=== PATIENT | female | born 1950 | race Two or more races ===

== ENCOUNTER 2019-02-22 10:17 | Inpatient (IN) | payer OTHER ==
--- NOTE | 2019-02-22 10:55 | PDOC ---
History of Present Illness - General Chief Complaint: Pain Stated Complaint: ABDOMINAL PAIN Time Seen by Provider: 02/22/19 10:55 Past History - Past Medical History Allergies/Adverse Reactions: Allergies Allergy/AdvReac Type Severity Reaction Status Date / Time Penicillins Allergy Verified 02/22/19 10:28 COPD: Yes Other medical history: glaucoma - Suicide/Smoking/Psychosocial Hx Smoking History: Never smoked *Physical Exam - Vital Signs Last Vital Signs Temp Pulse Resp BP Pulse Ox 97.5 F L 86 18 112/83 99 02/22/19 10:24 02/22/19 10:24 02/22/19 10:24 02/22/19 10:24 02/22/19 10:24
[2019-02-22] MEDS ORDERED: SODIUM CHLORIDE 1,000 ML IV STA ×2 (11:47→15:31)
--- NOTE | 2019-02-22 12:36 | PDOC ---
History of Present Illness - General Chief Complaint: Pain Stated Complaint: ABDOMINAL PAIN Time Seen by Provider: 02/22/19 10:55 History Source: Patient, Spouse () Exam Limitations: No Limitations - History of Present Illness Initial Comments: 02/22/19 12:21 68 y/o female presents to the ED with c/o decreased solid intake x 3-4 weeks along with approx 30 lb+ weight loss. Pt states about 5 weeks ago fell while walking the dog after tripping on the sidewalk. Pt states landed on her back, went to urgent care, had xrays, and was told she likely had "bruised ribs" Pt denies medical hx but has not seen a doctor in approx 8 years. Pt states no fever, MORENO, cp, SOB, abd distention, urinary complaints, or edema. Pt denies smoking and drinks alcohol occasionally. Pt also now c/o generalized weakness and intermittent dizziness w/ standing. Timing/Duration: getting worse Severity: moderate Associated Symptoms: reports: loss of appetite, weakness Past History - Travel Traveled outside of the country in the last 30 days: No Close contact w/someone who was outside of country & ill: No - Past Medical History Allergies/Adverse Reactions: Allergies Allergy/AdvReac Type Severity Reaction Status Date / Time thelma Allergy Verified 02/22/19 21:33 lemon Allergy Verified 02/22/19 21:32 [email or web address] Allergy Verified 02/22/19 21:33 Penicillins Allergy Verified 02/22/19 10:28 Home Medications: Ambulatory Orders Aspirin 81 mg PO DAILY 02/22/19 Bimatoprost [Lumigan] 1 drop OU DAILY 02/22/19 Timolol 0.5% [Timoptic 0.5%] 1 drop OU DAILY 02/22/19 Other medical history: glaucoma- left eye blindness - Suicide/Smoking/Psychosocial Hx Smoking History: Never smoked Patient Lives Alone: No Lives with/in: spouse/SO Review of Systems - Review of Systems Able to Perform ROS?: No Is the patient limited Welsh proficient: No Constitutional: Yes: Loss of Appetite, Malaise, Weakness, Unintentional Wgt. Loss, Unexplained wgt Loss HEENTM: No: Symptoms Reported Respiratory: No: Symptoms reported Cardiac (ROS): Yes: Lightheadedness ABD/GI: Yes: Poor Appetite Neurological: Yes: Weakness, Dizziness Endocrine: No: Symptoms Reported Hematologic/Lymphatic: No: Symptoms Reported *Physical Exam - Vital Signs Last Vital Signs Temp Pulse Resp BP Pulse Ox 97.5 F L 86 18 112/83 99 02/22/19 10:24 02/22/19 10:24 02/22/19 10:24 02/22/19 10:24 02/22/19 10:24 - Physical Exam General Appearance: Yes: Thin. No: Apparent Distress, Disheveled HEENT: positive: TMs Normal. negative: Pale Conjunctivae Neck: positive: Supple Respiratory/Chest: positive: Lungs Clear, Normal Breath Sounds. negative: Respiratory Distress, Accessory Muscle Use Cardiovascular: positive: Regular Rhythm, Regular Rate. negative: Murmur Gastrointestinal/Abdominal: positive: Normal Bowel Sounds, Soft, Hepatomegaly. negative: Tenderness Musculoskeletal: negative: CVA Tenderness Extremity: positive: Normal Capillary Refill, Normal Inspection, Normal Range of Motion Integumentary: positive: Normal Color, Dry, Warm Neurologic: positive: Motor Strength 5/5 (ambulatory) Heart Score/ECG Review - ECG Intrepretation Rhythm: Regular Rhythm (rate 86, noted q waves in lead I and v1) ED Treatment Course - LABORATORY CBC & Chemistry Diagram: 02/23/19 05:55 02/23/19 05:55 - RADIOLOGY Radiology Studies Ordered: Category Date Time Status ABDOMEN & PELVIS CT WITH CONTR [CT] Stat CT Scan 02/22/19 12:16 Ordered CHEST X-RAY PORTABLE* [RAD] Stat Radiology 02/22/19 11:47 Ordered Medical Decision Making - Medical Decision Making 02/22/19 12:33 CC: wt loss, decreased appetite, and now weak/dizzy w/ standing EXAM: thin/cachetic, + hepatomegaly Plan: labs, urine, cxr, ekg, ivf, abd/pel ct w/ iv contrast 02/22/19 15:0 CXR - for acute findings 02/22/19 15:43 Laboratory Tests 02/22/19 02/22/19 13:51 14:00 WBC 7.4 Hgb 7.8 L Hct 24.6 L Sodium 131 L Potassium 4.4 Chloride 92 L Carbon Dioxide 29 Anion Gap 10 BUN 23 H Creatinine 0.8 Creat Clearance w eGFR 70.91 Random Glucose 111 H Calcium 10.2 H Magnesium 2.1 Total Bilirubin 0.7 AST 82 H ALT 41 Alkaline Phosphatase 145 H Creatine Kinase 37 Troponin I < 0.02 Total Protein 6.6 Albumin 3.4 Lipase 185 Pt ordered for 2nd liter of fluid. Pt refused rectal guaic testing. Discussed low h/h and benefits of tranfusion secondary to s/s dizziness and weakness. He states will think about tranfusion and discuss with pt. Urine sent 02/22/19 17:18 CTAP reviewed by me and concerning for liver malignancy and ? lung malignancy. Will await final reading from radiologist. Pt understands the need for admission and has not agreed on tx or stool testing. Type and screen and coags will be ordered. Microblog to be sent to hospitalist *DC/Admit/Observation/Transfer Diagnosis at time of Disposition: Symptomatic anemia, Weight loss, non-intentional, Liver malignancy, Hyponatremia - Discharge Dispostion Decision to Admit order: Yes - Referrals - Patient Instructions - Post Discharge Activity
[2019-02-22 14:43] LABS: BASO % 0.2 % (0-2.0); HEMATOCRIT 24.6 % (32.4-45.2); HEMOGLOBIN 7.8 GM/dL (10.7-15.3); LYMPH % 11.1 % (8-40); MCH 22.8 pg (25.7-33.7); MCHC 31.6 g/dl (32.0-36.0); MEAN CELL VOLUME 72.3 fl (80-96); MEAN PLT VOLUME 8.2 fl (7.5-11.1); MONO % 7.1 % (3.8-10.2); NEUT % 81.6 % (42.8-82.8); PLATELET COUNT 271 K/MM3 (134-434); RBC 3.41 M/mm3 (3.60-5.2); RDW 16.1 % (11.6-15.6); WHITE BLOOD COUNT 7.4 K/mm3 (4.0-10.0)
[2019-02-22 14:52] LABS: ALBUMIN 3.4 g/dl (3.4-5.0); ALK PHOS 145 U/L (45-117); ANION GAP 10 MMOL/L (8-16); BILIRUBIN,TOTAL 0.7 mg/dL (0.2-1); BLOOD UREA NITROGEN 23 mg/dL (7-18); CALCIUM 10.2 mg/dL (8.5-10.1); CHLORIDE 92 mmol/L (98-107); CO2 29 mmol/L (21-32); CREATININE 0.8 mg/dL (0.55-1.3); GLUCOSE,RANDOM 111 mg/dL (74-106); LIPASE 185 U/L (73-393); MAGNESIUM 2.1 mg/dL (1.8-2.4); POTASSIUM 4.4 mmol/L (3.5-5.1); SGOT/AST 82 U/L (15-37); SGPT/ALT 41 U/L (13-61); SODIUM 131 mmol/L (136-145); TOT PROT 6.6 g/dl (6.4-8.2)
[2019-02-22 18:21] LABS: EPI CELLS 2.1 /HPF (0-5/HPF); URINE APPEARANCE CLOUDY; URINE BACTERIA 1.9 /hpf (NEGATIVE); URINE BILIRUBIN NEGATIVE (NEGATIVE); URINE CASTS 22 /hpf (0-8); URINE COLOR YELLOW; URINE GLUCOSE (UA) NEGATIVE (NEGATIVE); URINE KETONE TRACE (NEGATIVE); URINE LEUK ESTERASE TRACE (NEGATIVE); URINE NITRITE NEGATIVE (NEGATIVE); URINE PROTEIN 1+ (NEGATIVE); URINE RBC 3 /hpf (0-4); URINE WBC 4 /hpf (0-5)
--- NOTE | 2019-02-22 21:10 | HP ---
CHIEF COMPLAINT: Abdominal pain PCP: None HISTORY OF PRESENT ILLNESS: Pt is a pleasant 68 y/o lady with a significant past medical histroy of glaucoma who presented to [facility] along with her due to abdominal pain and poor oral intake. Pt endorses that approximately 5 weeks ago, she endured a mechanical fall while walking her dog. Pt subsequently went to [facility]gent care where she underwent an xray where she was told she had " bruised ribs". Pt states that since this injury, she has not felt herself. Pt has had a decreased appetite during this time, not being able to "keep food down". Upon interviewing pt, she endorses she has lost weight but cannot recall how much. Previous ED records indicate that she has lost around 30 lbs according to her spouse who was not at bedside at time of my interview. Pt states she has not seen a primary care physician in many years and has not underwent any screening exams such as colonoscopy or breast mammography. Furthermore, pt denies chest pain, LOC, bloody stools, or sick contacts, PMH- Glaucoma Social Hx- Former Smoker (quit 40 years ago, smoked about 1 pack, drinks 1 alcoholic beverage per day, retired from [employer]) FH- Father HTN, Mother M.I Allergies- Marycarmen, Lemon tanacross, Penicillin ER course was notable for: (1) NA--> 131 (2) CTAP--> Innumerable METs to liver. Mets in lower lung harris, spine. (3) HOME MEDICATIONS: Home Medications Medication Instructions Recorded Aspirin 81 mg PO DAILY 02/22/19 Bimatoprost [Lumigan] 1 drop OU DAILY 02/22/19 Timolol 0.5% [Timoptic 0.5%] 1 drop OU DAILY 02/22/19 REVIEW OF SYSTEMS CONSTITUTIONAL: PRESENT chills, generalized weakness, malaise, loss of appetite, weight change HEENT: Absent: rhinorrhea, nasal congestion, throat pain, throat swelling, difficulty swallowing, mouth swelling, ear pain, eye pain, visual changes CARDIOVASCULAR: Absent: chest pain, syncope, palpitations, irregular heart rate, lightheadedness , peripheral edema RESPIRATORY: PRESENT shortness of breath, dyspnea with exertion GASTROINTESTINAL: Absent: abdominal pain, abdominal distension, nausea, vomiting, diarrhea, constipation, melena, hematochezia GENITOURINARY: Absent: dysuria, frequency, urgency, hesitancy, hematuria, flank pain, genital pain MUSCULOSKELETAL: Absent: myalgia, arthralgia, joint swelling, back pain, neck pain SKIN: Absent: rash, itching, pallor HEMATOLOGIC/IMMUNOLOGIC: Absent: easy bleeding, easy bruising, lymphadenopathy, frequent infections ENDOCRINE: Absent: unexplained weight gain, unexplained weight loss, heat intolerance, cold intolerance NEUROLOGIC: Absent: headache, focal weakness or paresthesias, dizziness, unsteady gait, seizure, mental status changes, bladder or bowel incontinence PSYCHIATRIC: Absent: anxiety, depression, suicidal or homicidal ideation, hallucinations. PHYSICAL EXAMINATION Vital Signs - 24 hr 02/22/19 02/22/19 02/22/19 10:24 15:30 19:04 Temperature 97.5 F L Pulse Rate 86 Pulse Rate [ 70 74 Radial] Respiratory 18 18 18 Rate Blood Pressure 112/83 Blood Pressure 128/68 135/76 [Right Arm] O2 Sat by Pulse 99 99 98 Oximetry (%) GENERAL: NAD AAOx3 HEAD: AT/NC EYES: Corneal clouding left eye no vision. EARS, NOSE, THROAT: MMM NECK: Supple LUNGS: CTAB Good inspiratory effort HEART: RRR nl S1S2 ABDOMEN: Soft NDNT, No HSM on my exam. MUSCULOSKELETAL: FROM LOWER EXTREMITIES: No CCE NEUROLOGICAL: Cranial nerves II-XII intact. Normal speech. PSYCHIATRIC: Cooperative. Good eye contact. Appropriate mood and affect. SKIN: No rashes or lesions appreciated RECTAL: No external hemorrhoids appreciated. No obvious blood around anus. No anal fissure. Stool in rectal vault. Stool Guiac collected by myself. Laboratory Results - last 24 hr 02/22/19 02/22/19 02/22/19 13:51 14:00 14:00 WBC 7.4 RBC 3.41 L Hgb 7.8 L Hct 24.6 L MCV 72.3 L MCH 22.8 L MCHC 31.6 L RDW 16.1 H Plt Count 271 MPV 8.2 Absolute Neuts (auto) 6.0 Neutrophils % 81.6 Lymphocytes % 11.1 Monocytes % 7.1 Eosinophils % 0.0 Basophils % 0.2 Nucleated RBC % 0 Sodium 131 L Potassium 4.4 Chloride 92 L Carbon Dioxide 29 Anion Gap 10 BUN 23 H Creatinine 0.8 Creat Clearance w eGFR 70.91 Random Glucose 111 H Calcium 10.2 H Magnesium 2.1 Total Bilirubin 0.7 AST 82 H ALT 41 Alkaline Phosphatase 145 H Creatine Kinase 37 Troponin I < 0.02 Total Protein 6.6 Albumin 3.4 Lipase 185 Urine Color Urine Appearance Urine pH Ur Specific Redbird Urine Protein Urine Glucose (UA) Urine Ketones Urine Blood Urine Nitrite Urine Bilirubin Urine Urobilinogen Ur Leukocyte Esterase Urine WBC (Auto) Urine RBC (Auto) Urine Casts (Auto) U Pathogenic Cast Auto U Epithel Cells (Auto) Urine Bacteria (Auto) Stool Occult Blood Acetone, Qual Negative L 02/22/19 02/22/19 15:55 20:21 WBC RBC Hgb Hct MCV MCH MCHC RDW Plt Count MPV Absolute Neuts (auto) Neutrophils % Lymphocytes % Monocytes % Eosinophils % Basophils % Nucleated RBC % Sodium Potassium Chloride Carbon Dioxide Anion Gap BUN Creatinine Creat Clearance w eGFR Random Glucose Calcium Magnesium Total Bilirubin AST ALT Alkaline Phosphatase Creatine Kinase Troponin I Total Protein Albumin Lipase Urine Color Yellow Urine Appearance Cloudy Urine pH 5.0 Ur Specific Redbird 1.032 Urine Protein 1+ H Urine Glucose (UA) Negative Urine Ketones Trace H Urine Blood Negative Urine Nitrite Negative Urine Bilirubin Negative Urine Urobilinogen 1.0 Ur Leukocyte Esterase Trace Urine WBC (Auto) 4 Urine RBC (Auto) 3 Urine Casts (Auto) 22 U Pathogenic Cast Auto yes U Epithel Cells (Auto) 2.1 Urine Bacteria (Auto) 1.9 Stool Occult Blood Positive Acetone, Qual ASSESSMENT/PLAN: Pt is a pleasant 68 y/o lady with a significant past medical histroy of glaucoma who presented to [facility] along with her due to abdominal pain and poor oral intake. Pt endorses that approximately 5 weeks ago, she endured a mechanical fall while walking her dog. #Failure to Thrive 2/2 Malignancy. -Could potentially be primarily from Breast or GI source as both known to spread to bone. However, CTAP negative for any GI lesions. -CTAP--> Innumerable mets number to liver. Mets in lower lung harris. Mets to Spine -Reported 30 lb weight loss in past few weeks. -Onc Consult -GI Consult -Dietary Consult -Palliative Consult # Anemia 2/2 possible GI Source -H/H 7.8/24.6 -Stool occult + -GI Consult -Never had colonoscopy. Will need. -Repat H/H in am. -Iron Studies--> Ferritin, TIBC, Transferin -Hold ASA in light of possible G.I bleed # Hyponatremia 2/2 possible SIADH or Poor P.O intake - Na in ED---> 131 -Recieved 2L NS bolus so Urine studies may not be optimal -Will order Urine Sodium, Urine Osm, Serum Osm to help ascertain whether etiology is Hypovolemic hyponatremia, euvolemic hyponatremia, or hypervolemic hyponatremia. -TSH #Glaucoma -Resume home meds # FEN -No Fluids. Encourage PO intake. Orthostatics: Lying down---> 134/53 HR 81. Upright--> 118/51 HR 83 Monitor Electrolytes Regular Diet # DVT ppx SCDs GI ppx: Protonix 40 Daily Dispo: Med-Surg Visit type - Emergency Visit Emergency Visit: Yes ED Registration Date: 02/22/19 Care time: The patient presented to the Emergency Department on the above date and was hospitalized for further evaluation of their emergent condition. - New Patient This patient is new to me today: Yes Date on this admission: 02/22/19 - Critical Care Critical Care patient: No
[2019-02-22] MEDS ORDERED: PATIENT'S OWN MEDICATION (NON-FORMULARY) (Bimatoprost [Lumigan] 1 DROP) OU SCH (21:30)
[2019-02-22] MEDS ORDERED: PANTOPRAZOLE 40 MG TABLET (FP) PO SCH (22:00)
--- NOTE | 2019-02-22 22:42 | PN ---
Teaching Attending Note Name of Resident: Brandon Self ATTENDING PHYSICIAN STATEMENT I saw and evaluated the patient. I reviewed the resident's note and discussed the case with the resident. I agree with the resident's findings and plan as documented. SUBJECTIVE: OBJECTIVE: breast exam didnt yield to any tumor findings rectal exam performed by resident showed + FOB s1 and s2 RRR abdomen tender to touch cahcetic ASSESSMENT AND PLAN: This is a 68 y/o F with history of glaucoma who presented for abdominal pain and poor oral intake. Pt endorses that approximately 5 weeks ago, she endured a mechanical fall while walking her dog, but that pain is improving she feels some abdominal discomfort. #Failure to Thrive 2/2 Malignancy. - CT scan showed diffuse metastaic lesions in the liver, lungs and vertebra with significant history of weightloss and decreased appetite -Onc Consult -GI Consult -manager radio Consult -Palliative Consult # Anemia 2/2 possible GI Source vs anemia of Chronic disease -H/H 7.8/24.6 -Stool occult + -GI Consult -Never had colonoscopy. Will need. -Repat H/H in am. -Iron Studies--> Ferritin, TIBC, Transferin -Hold ASA in light of possible G.I bleed # Hyponatremia 2/2 hypovolemic hyponatremic vs hypervolemic hyponatremic vs Euvolemic hyponatremic - Na in ED---> 131 -Recieved 2L NS bolus so Urine studies may not be optimal - obtain Thyroid function test to evaluate for the Euvolemic state - obtain Serum OSM, Urine OSM ,calculate FENA - poor intake 2.2 to decreased PO intake #Glaucoma -Resume home meds - avoid anticholenergic drug - including atropine to prevent acute attack # FEN -No Fluids. Encourage PO intake. Orthostatics: Lying down---> 134/53 HR 81. Upright--> 118/51 HR 83 Monitor Electrolytes Regular Diet
[2019-02-22] MEDS ORDERED: PANTOPRAZOLE SODIUM 40 MG VIAL ONE (22:59)
[2019-02-23 01:09] LABS: BASO % 0.4 % (0-2.0); EOS % 0.2 % (0-4.5); HEMATOCRIT 23.1 % (32.4-45.2); HEMOGLOBIN 7.3 GM/dL (10.7-15.3); LYMPH % 13.2 % (8-40); MCH 22.6 pg (25.7-33.7); MCHC 31.4 g/dl (32.0-36.0); MEAN CELL VOLUME 72.1 fl (80-96); MEAN PLT VOLUME 8.2 fl (7.5-11.1); MONO % 8.2 % (3.8-10.2); PLATELET COUNT 244 K/MM3 (134-434); RBC 3.21 M/mm3 (3.60-5.2); WHITE BLOOD COUNT 6.4 K/mm3 (4.0-10.0)
[2019-02-23 01:45] LABS: OSMOLALITY,SERUM 276 mosm/kg (278-305)
[2019-02-23 06:23] LABS: BASO % 0.2 % (0-2.0); EOS % 0.2 % (0-4.5); HEMATOCRIT 22.3 % (32.4-45.2); HEMOGLOBIN 7.1 GM/dL (10.7-15.3); LYMPH % 17.1 % (8-40); MCH 22.9 pg (25.7-33.7); MEAN CELL VOLUME 71.4 fl (80-96); MEAN PLT VOLUME 8.1 fl (7.5-11.1); MONO % 7.7 % (3.8-10.2); NEUT % 74.8 % (42.8-82.8); PLATELET COUNT 241 K/MM3 (134-434); RBC 3.12 M/mm3 (3.60-5.2); WHITE BLOOD COUNT 6.4 K/mm3 (4.0-10.0)
[2019-02-23 06:42] LABS: INR 1.31 (0.83-1.09); PROTHROMBIN TIME (PATIENT) 15.5 SEC (9.7-13.0)
[2019-02-23 06:44] LABS: ACTIVATED PTT 25.1 SECONDS (25.2-36.5)
[2019-02-23 06:54] LABS: ALBUMIN 2.8 g/dl (3.4-5.0); ALK PHOS 121 U/L (45-117); ANION GAP 10 MMOL/L (8-16); BILIRUBIN,TOTAL 0.8 mg/dL (0.2-1); BLOOD UREA NITROGEN 19 mg/dL (7-18); CALCIUM 9.4 mg/dL (8.5-10.1); CHLORIDE 98 mmol/L (98-107); CO2 24 mmol/L (21-32); CREATININE 0.6 mg/dL (0.55-1.3); GLUCOSE,RANDOM 76 mg/dL (74-106); MAGNESIUM 2.1 mg/dL (1.8-2.4); PHOSPHOROUS 2.7 mg/dL (2.5-4.9); POTASSIUM 4.3 mmol/L (3.5-5.1); SGOT/AST 75 U/L (15-37); SGPT/ALT 37 U/L (13-61); SODIUM 132 mmol/L (136-145); TOT PROT 5.8 g/dl (6.4-8.2)
--- NOTE | 2019-02-23 08:12 | PN ---
Teaching Attending Note Name of Resident: Gloria Azul ATTENDING PHYSICIAN STATEMENT I saw and evaluated the patient. I reviewed the resident's note and discussed the case with the resident. I agree with the resident's findings and plan as documented. SUBJECTIVE: Patient is a 68yo female presented to ed. for having an abdominal pain and 20 lb weight loss over the last several weeks. Denies change in bowel habits, has no appetite, denies N/V. OBJECTIVE: Vital Signs Temperature 98.7 F 02/23/19 06:10 Pulse Rate 79 02/23/19 06:10 Respiratory Rate 18 02/23/19 06:10 Blood Pressure 120/70 02/23/19 06:10 O2 Sat by Pulse Oximetry (%) 97 02/23/19 06:10 GENERAL: The patient is awake, alert, and fully oriented, in no acute distress, cachectic. HEAD: Normal with no signs of trauma. EYES:sclera anicteric, conjunctiva clear, left eye opacification ENT:oropharynx clear without exudates, dry mucous membranes. NECK: Trachea midline, full range of motion, supple. LUNGS: Breath sounds equal, clear to auscultation bilaterally. HEART: Regular rate and rhythm, S1, S2 without murmur, rub or gallop. ABDOMEN: Soft, nontender, nondistended, normoactive bowel sounds, no masses. EXTREMITIES: 2+ pulses, warm, well-perfused, no edema. NEUROLOGICAL: Cranial nerves II through XII grossly intact. Normal speech, gait not observed. PSYCH: Normal mood, normal affect. SKIN: Warm, dry, normal turgor, no rashes or lesions noted CBCD WBC 6.4 K/mm3 (4.0-10.0) 02/23/19 05:55 RBC 3.12 M/mm3 (3.60-5.2) L 02/23/19 05:55 Hgb 7.1 GM/dL (10.7-15.3) L 02/23/19 05:55 Hct 22.3 % (32.4-45.2) L 02/23/19 05:55 MCV 71.4 fl (80-96) L 02/23/19 05:55 MCHC 32.0 g/dl (32.0-36.0) 02/23/19 05:55 RDW 16.0 % (11.6-15.6) H 02/23/19 05:55 Plt Count 241 K/MM3 (134-434) 02/23/19 05:55 MPV 8.1 fl (7.5-11.1) 02/23/19 05:55 CMP Sodium 132 mmol/L (136-145) L 02/23/19 05:55 Potassium 4.3 mmol/L (3.5-5.1) 02/23/19 05:55 Chloride 98 mmol/L (98-107) 02/23/19 05:55 Carbon Dioxide 24 mmol/L (21-32) 02/23/19 05:55 Anion Gap 10 MMOL/L (8-16) 02/23/19 05:55 BUN 19 mg/dL (7-18) H 02/23/19 05:55 Creatinine 0.6 mg/dL (0.55-1.3) 02/23/19 05:55 Creat Clearance w eGFR 98.83 (>60) 02/23/19 05:55 Random Glucose 76 mg/dL (74-106) 02/23/19 05:55 Calcium 9.4 mg/dL (8.5-10.1) 02/23/19 05:55 Total Bilirubin 0.8 mg/dL (0.2-1) 02/23/19 05:55 AST 75 U/L (15-37) H 02/23/19 05:55 ALT 37 U/L (13-61) 02/23/19 05:55 Alkaline Phosphatase 121 U/L (45-117) H 02/23/19 05:55 Total Protein 5.8 g/dl (6.4-8.2) L 02/23/19 05:55 Albumin 2.8 g/dl (3.4-5.0) L 02/23/19 05:55 CARDIAC ENZYMES Creatine Kinase 37 U/L (26-192) 02/22/19 13:51 Troponin I < 0.02 ng/ml (0.00-0.05) 02/22/19 13:51 Current Medications Generic Name Dose Route Start Last Admin Trade Name Freq PRN Reason Stop Dose Admin Sodium Chloride 1,000 mls @ 75 mls/hr 02/23/19 07:30 Normal Saline - IV ASDIR [place] Latanoprost 1 drop 02/23/19 22:00 Xalatan 0.005% Eye Drops - OU HS [place] Pantoprazole Sodium 40 mg 02/23/19 10:00 Protonix - PO BID [place] Timolol Maleate 1 drop 02/23/19 10:00 Timoptic 0.5% OU DAILY [place] Home Medications Medication Instructions Recorded Aspirin 81 mg PO DAILY 02/22/19 Bimatoprost [Lumigan] 1 drop OU DAILY 02/22/19 Timolol 0.5% [Timoptic 0.5%] 1 drop OU DAILY 02/22/19 CTAP: Diffuse liver metastasis. Bone metastases. Tiny juxtapleural and pleural- based nodules in the included lower lung measuring up to 4mm which are nonspecific. ASSESSMENT AND PLAN: Patient is a 68 year old female with PMHx of glaucoma( left ) presented with abdominal pain, with decreased oral intake for over 3 weeks , where she lost around 40 pounds for approximately 5 weeks. #Undiagnosed metastatic disease unknown primary: to liver, bone, multiple lung nodules: GI/oncology on board #Failure to thrive due to metastatic disease; nutrition consult, will get Jeny Simons involved for MBS , to further assess the swallowing. # BMI of 18.2, malnutrition: dietary consult #Microcytic anemia due to malignancy; Gi for consult for colonoscopy/EGD w/u for gastric mass vs colon , GI and oncology for consult ;iron studies #Acute Hyponatremia: due to poor oral intake vs malignancy , will hydrate her normal saline IV #Glaucoma with left eye opacification : Continue with her home eye drops DVT Px: SCD , no ac due to GIB
--- NOTE | 2019-02-23 10:32 | EKG ---
Test Reason : Blood Pressure : / mmHG Vent. Rate : 086 BPM Atrial Rate : 086 BPM P-R Int : 116 ms QRS Dur : 092 ms QT Int : 382 ms P-R-T Axes : 018 -21 014 degrees QTc Int : 457 ms NORMAL SINUS RHYTHM POSSIBLE LEFT ATRIAL ENLARGEMENT LEFT VENTRICULAR HYPERTROPHY POSSIBLE LATERAL INFARCT , AGE UNDETERMINED ABNORMAL ECG NO PREVIOUS ECGS AVAILABLE Confirmed by SHAWN DA SILVA MD ([id number]) on 02/23/2019 10:31:36 AM Referred By: Confirmed By:SHAWN DA SILVA MD
[2019-02-23] MEDS: SODIUM CHLORIDE 1,000 ML IV SCH (11:05)
[2019-02-23] MEDS: PANTOPRAZOLE 40 MG TABLET (FP) PO SCH ×2 (11:06→21:48)
--- NOTE | 2019-02-23 11:09 | CONSULT ---
Admitting History and Physical - Primary Care Physician PCP: Salome Thurman - Admission History of Present Illness: Pt is a pleasant 68 y/o lady with PMH of glaucoma who presented to [facility] along with her due to abdominal pain, poor oral intake, and 30 lb weight loss. Per EMR-Failure to Thrive 2/2 Malignancy. -Could potentially be primarily from Breast or GI source as both known to spread to bone. However, CTAP negative for any GI lesions. -CTAP--> Innumerable mets number to liver. Mets in lower lung harris. Mets to Spine History Source: Patient, Medical Record - Smoking History Smoking history: Never smoked History - Admission Reason For Visit: MALIGNANT NEOPLASM OF LIVER SECONDARY ANEMIA - Diagnostics X-ray: Report Reviewed CT Scan: Report Reviewed - General Mental Status: Alert and Oriented, Awake and Alert, Able to Follow Commands, Vague, Flat Affect Attention: Intact Ability to Follow Directions: Good Head/Neck Control: WFL - Hearing Hearing: Functional Speech Evaluation - Communication Primary Language: KINYARWANDA Communication: Yes: Within Normal Limits Oral Expression Ability: Yes: No Impairment - Speech Production Able to Make Needs Known: Yes: WNL Intelligibility: Yes: WNL - Speech Characteristics Voice Loudness: Normal Voice Pitch: Yes: Normal Voice Phonatory-based Quality: Yes: Normal Speech Pattern: Normal Speech Clarity: < 100% Nasal Resonance: Normal Articulation: Yes: Precise - Language/Auditory Comprehension Follows: Yes: 1 Stage Simple Commands - Language/Verbal Expression Able to Respond to Simple Queries: Yes: WNL Able to Communicate Wants and Needs: Yes: WNL Functional Communication Status: Yes: WNL - Swallow Evaluation/Bedside Assessment Current Nutritional Intake: Regular, Thin Liquids Oral Secretions: Yes: WFL (expectorates phlegm) Dentition: Yes: Missing Teeth (missing posteriorally bilaterally) Facial Symmetry at Rest: Facial Droop Right Facial Symmetry on Retraction: Symmetrical Against Resistance Opening: Weak Against Resistance Closing: Weak Pucker Lips: Weak Smile: Weak Lingual Movement: Symmetric Lingual Speed of Movement: Normal Lingual Movement Strgth Against Opposition: Normal Lingual Movement Characteristics: Normal Velopharyngeal Movement: Normal Laryngeal Movement: Able to Palpate Bolus Size: Small Labial Seal: WFL Chewing: Impaired Oral Prep Time: WFL A-P Transit: WFL Coughing/Throat Clear: No Change in Voice: No Recommendations - Speech Evaluation, Impression/Plan Impression: Reports liguid coming back up at times and needing to drink to clear food intermittently. Missing dentition posteriorally with difficulty chewing reported. Reports food allergies such as food, thelma willa, 7 up, "which come back up" over the last 3 months. r/o Esophageal Dysphagia. - Dysphagia Impressions/Plan Dysphagia Impressions: Ongoing Evaluation *Silent aspiration: cannot be R/O at bedside Dysphagia Treatment Plan: Small Bites, Chin Tuck/Down, Facilitative Feeding, Safe Rate, 1/2 tsp. at a time, OOB for meals, OOB for 1 h. after meals, Other ( Alternate solids with liquids. Complete meal with liquid. HOB elevated after meals. NPO if regurgitating food/liquid.) Recommendations: GI Consult (pending), Palliative Care, MBS w Esophagus, Other ( Oncology pending) - Recommendations Diet Consistency: Other (Chopped diet) Liquids: Thin Liquids Supplement: Ensure, Magic Cup
[2019-02-23 13:23] VITALS: BMI 18.1
[2019-02-23 13:52] LABS: HEMATOCRIT 23.6 % (32.4-45.2); HEMOGLOBIN 7.5 GM/dL (10.7-15.3); MCH 22.7 pg (25.7-33.7); MCHC 31.6 g/dl (32.0-36.0); MEAN CELL VOLUME 71.8 fl (80-96); MEAN PLT VOLUME 7.9 fl (7.5-11.1); PLATELET COUNT 257 K/MM3 (134-434); RBC 3.29 M/mm3 (3.60-5.2); RDW 16.1 % (11.6-15.6); WHITE BLOOD COUNT 7.4 K/mm3 (4.0-10.0)
[2019-02-23] MEDS ORDERED: PROCHLORPERAZINE MALEATE 5 MG TABLET PO ONE (14:04)
--- NOTE | 2019-02-23 14:17 | CON.GI ---
Consult Consult Specialty:: GI Referred by:: Medicine Reason for Consultation:: liver lesions - History of Present Illness Chief Complaint: abdominal pain, weight loss History of Present Illness: 68F admitted for evaluation of abdominal pain and 20 lb weight loss over the last several weeks. Denies change in bowel habits, BRBPR, N/V. Found on CT to have multiple liver lesions, likely metastasis. GI consulted for further evaluation. - History Source History Provided By: Patient Limitations to Obtaining History: No Limitations - Past Medical History ...: No - Alcohol/Substance Use Hx Alcohol Use: No - Smoking History Smoking history: Never smoked Have you smoked in the past 12 months: No Home Medications - Allergies Allergies/Adverse Reactions: Allergies Allergy/AdvReac Type Severity Reaction Status Date / Time thelma Allergy Verified 02/22/19 21:33 lemon Allergy Verified 02/22/19 21:32 native Allergy Verified 02/22/19 21:33 Penicillins Allergy Verified 02/22/19 10:28 - Home Medications Home Medications: Ambulatory Orders Aspirin 81 mg PO DAILY 02/22/19 Bimatoprost [Lumigan] 1 drop OU DAILY 02/22/19 Timolol 0.5% [Timoptic 0.5%] 1 drop OU DAILY 02/22/19 Review of Systems - Review of Systems Constitutional: reports: Unintentional Wgt. Loss, Weakness Eyes: reports: No Symptoms HENT: reports: No Symptoms Cardiovascular: reports: No Symptoms Respiratory: reports: No Symptoms Gastrointestinal: reports: Abdominal Pain. denies: Nausea, Vomiting Musculoskeletal: reports: No Symptoms Neurological: reports: No Symptoms Endocrine: reports: No Symptoms Hematology/Lymphatic: reports: No Symptoms Physical Exam-GI Vital Signs: Vital Signs Temperature 98.1 F 02/23/19 11:11 Pulse Rate 72 02/23/19 11:11 Respiratory Rate 20 02/23/19 11:11 Blood Pressure 132/72 02/23/19 11:11 O2 Sat by Pulse Oximetry (%) 97 02/23/19 08:58 Constitutional: Yes: Cachectic Eyes: Yes: Conjunctiva Clear HENT: Yes: Atraumatic, Normocephalic Cardiovascular: Yes: Regular Rate and Rhythm Respiratory: Yes: CTA Bilaterally ...Palpate: Yes: Hepatomegaly (tender massive hepatomegaly. Firm liver palpated to the left of midline.), Soft ...Rectal Exam: Yes: Deferred Edema: No Integumentary: Yes: WNL Neurological: Yes: Alert, Oriented Psychiatric: Yes: Alert, Oriented Labs: CBC, BMP 02/23/19 13:40 02/23/19 05:55 INR, PTT INR 1.31 (0.83-1.09) H 02/23/19 05:55 Hepatic Panel Total Bilirubin 0.8 mg/dL (0.2-1) 02/23/19 05:55 AST 75 U/L (15-37) H 02/23/19 05:55 ALT 37 U/L (13-61) 02/23/19 05:55 Alkaline Phosphatase 121 U/L (45-117) H 02/23/19 05:55 Albumin 2.8 g/dl (3.4-5.0) L 02/23/19 05:55 Imaging - Results Cat Scan: Report Reviewed Assessment/Plan Metastatic cancer of unknown primary with mets to liver and bone. FOBT+ per documentation. Colonoscopy is unlikely to be fruitful in terms of primary diagnosis without evidence of colonic wall thickening or regional lymphadenopathy on CT Would recommend IR guided liver biopsy for tissue diagnosis Follow up iron studies, ferritin
--- NOTE | 2019-02-23 14:51 | CONSULT ---
Consultation: REQUESTING PROVIDER: CONSULT REQUEST: We have been asked to medically evaluate this patient for heme/ onc. HISTORY OF PRESENT ILLNESS: 68 y/o F w/PMH of glaucoma and no medical follow up in many years who presented to the ER for decreased PO intake and not feeling well for the last 5 weeks after having a mechanical fall while walking her dog. She was seen at urgent care then and not found to have any fractures on CXR. She has not been able to eat and has felt nauseous since. Over the last 2 weeks she reports 20-30 pounds of unintentional weight loss, feels fatigued, and not herself. She denies blood in urine or stool, black stools, CP, SOB. She reports some dizziness with change in position over the last 5 weeks as well. She was found to have mets to liver, lung, and spine on CT A/P here. She has not had a colonoscopy or mammo. Only sees eye doctor for glaucoma. PMH: glaucoma PSHx: Ovarian cyst surgery in [place]: Former smoker (quit 40 years ago, 1ppd). Occasional alcohol use. Retired from [employer] (no toxic exposures). FH: Father: HTN, passed at 89. Mother: [place]. No children. No reported history of cancer in family. Allergies: [place], Lemon, [place], Penicillins REVIEW OF SYSTEMS: CONSTITUTIONAL: +generlized weakness, loss of appetite, weight change HEENT: Absent: visual changes CARDIOVASCULAR: Absent: chest pain, peripheral edema RESPIRATORY: Absent: cough, shortness of breath GASTROINTESTINAL: +nausea Absent: abdominal pain, vomiting, constipation, melena, hematochezia GENITOURINARY: Absent: dysuria, hematuria ENDOCRINE: +unexplained weight loss NEUROLOGIC: +orthostatic dizziness PHYSICAL EXAMINATION Vital Signs - 24 hr 02/22/19 02/22/19 02/23/19 15:30 19:04 03:32 Temperature 98.3 F Pulse Rate Pulse Rate [ 70 74 85 Radial] Respiratory 18 18 Rate Blood Pressure Blood Pressure 121/65 [Left Arm] Blood Pressure 128/68 135/76 [Right Arm] O2 Sat by Pulse 99 98 98 Oximetry (%) 02/23/19 02/23/19 02/23/19 06:10 08:58 11:11 Temperature 98.7 F 98.1 F Pulse Rate 72 Pulse Rate [ 79 92 H Radial] Respiratory 18 18 20 Rate Blood Pressure 132/72 Blood Pressure 120/70 [Left Arm] Blood Pressure 100/56 L [Right Arm] O2 Sat by Pulse 97 97 Oximetry (%) GENERAL: Awake, alert, and fully oriented, in no acute distress. HEAD: Normal with no signs of trauma. EYES: L eye blindness EARS, NOSE, THROAT: Ears normal, nares patent LUNGS: Breath sounds equal, clear to auscultation bilaterally. No wheezes, and no crackles. No accessory muscle use. HEART: Regular rate and rhythm, normal S1 and S2 ABDOMEN: Soft, nontender, not distended, normoactive bowel sounds MUSCULOSKELETAL: No spinal tenderness LOWER EXTREMITIES: warm, well-perfused. No peripheral edema. NEUROLOGICAL: Cranial nerves II-XII intact. Normal speech. Gait not observed. PSYCHIATRIC: Cooperative. Good eye contact. Appropriate mood and affect. SKIN: Warm, dry LYPMH: No pre-auricular, cervical, axillary, supraclavicular LAD. BREAST: No breast masses, lesions, or skin changes noted. No axillary LAD. Laboratory Results - last 24 hr 02/22/19 02/22/19 02/22/19 13:51 14:00 14:00 WBC 7.4 RBC 3.41 L Hgb 7.8 L Hct 24.6 L MCV 72.3 L MCH 22.8 L MCHC 31.6 L RDW 16.1 H Plt Count 271 MPV 8.2 Absolute Neuts (auto) 6.0 Neutrophils % 81.6 Lymphocytes % 11.1 Monocytes % 7.1 Eosinophils % 0.0 Basophils % 0.2 Nucleated RBC % 0 PT with INR INR PTT (Actin FS) Sodium 131 L Potassium 4.4 Chloride 92 L Carbon Dioxide 29 Anion Gap 10 BUN 23 H Creatinine 0.8 Creat Clearance w eGFR 70.91 Random Glucose 111 H Serum Osmolality 276 L Calcium 10.2 H Phosphorus Magnesium 2.1 Ferritin Total Bilirubin 0.7 AST 82 H ALT 41 Alkaline Phosphatase 145 H Creatine Kinase 37 Troponin I < 0.02 Total Protein 6.6 Albumin 3.4 Lipase 185 TSH Free T4 Urine Color Urine Appearance Urine pH Ur Specific [place] Urine Protein Urine Glucose (UA) Urine Ketones Urine Blood Urine Nitrite Urine Bilirubin Urine Urobilinogen Ur Leukocyte Esterase Urine WBC (Auto) Urine RBC (Auto) Urine Casts (Auto) U Pathogenic Cast Auto U Epithel Cells (Auto) Urine Bacteria (Auto) Ur Random Sodium Stool Occult Blood Acetone, Qual Negative L Blood Type Antibody Screen 02/22/19 02/22/19 02/23/19 15:55 20:21 00:53 WBC 6.4 RBC 3.21 L Hgb 7.3 L Hct 23.1 L MCV 72.1 L MCH 22.6 L MCHC 31.4 L RDW 16.0 H Plt Count 244 MPV 8.2 Absolute Neuts (auto) 5.0 Neutrophils % 78.0 Lymphocytes % 13.2 Monocytes % 8.2 Eosinophils % 0.2 D Basophils % 0.4 Nucleated RBC % 0 PT with INR INR PTT (Actin FS) Sodium Potassium Chloride Carbon Dioxide Anion Gap BUN Creatinine Creat Clearance w eGFR Random Glucose Serum Osmolality Calcium Phosphorus Magnesium Ferritin Total Bilirubin AST ALT Alkaline Phosphatase Creatine Kinase Troponin I Total Protein Albumin Lipase TSH Free T4 Urine Color Yellow Urine Appearance Cloudy Urine pH 5.0 Ur Specific [place] 1.032 Urine Protein 1+ H Urine Glucose (UA) Negative Urine Ketones Trace H Urine Blood Negative Urine Nitrite Negative Urine Bilirubin Negative Urine Urobilinogen 1.0 Ur Leukocyte Esterase Trace Urine WBC (Auto) 4 Urine RBC (Auto) 3 Urine Casts (Auto) 22 U Pathogenic Cast Auto yes U Epithel Cells (Auto) 2.1 Urine Bacteria (Auto) 1.9 Ur Random Sodium Stool Occult Blood Positive Acetone, Qual Blood Type Antibody Screen 02/23/19 02/23/19 02/23/19 05:55 05:55 05:55 WBC 6.4 RBC 3.12 L Hgb 7.1 L Hct 22.3 L MCV 71.4 L MCH 22.9 L MCHC 32.0 RDW 16.0 H Plt Count 241 MPV 8.1 Absolute Neuts (auto) 4.8 Neutrophils % 74.8 Lymphocytes % 17.1 D Monocytes % 7.7 Eosinophils % 0.2 Basophils % 0.2 Nucleated RBC % 0 PT with INR 15.50 H INR 1.31 H PTT (Actin FS) 25.1 L Sodium Potassium Chloride Carbon Dioxide Anion Gap BUN Creatinine Creat Clearance w eGFR Random Glucose Serum Osmolality 288 Calcium Phosphorus Magnesium Ferritin Total Bilirubin AST ALT Alkaline Phosphatase Creatine Kinase Troponin I Total Protein Albumin Lipase TSH Free T4 Urine Color Urine Appearance Urine pH Ur Specific [place] Urine Protein Urine Glucose (UA) Urine Ketones Urine Blood Urine Nitrite Urine Bilirubin Urine Urobilinogen Ur Leukocyte Esterase Urine WBC (Auto) Urine RBC (Auto) Urine Casts (Auto) U Pathogenic Cast Auto U Epithel Cells (Auto) Urine Bacteria (Auto) Ur Random Sodium Stool Occult Blood Acetone, Qual Blood Type Antibody Screen 02/23/19 02/23/19 02/23/19 05:55 05:55 05:55 WBC RBC Hgb Hct MCV MCH MCHC RDW Plt Count MPV Absolute Neuts (auto) Neutrophils % Lymphocytes % Monocytes % Eosinophils % Basophils % Nucleated RBC % PT with INR INR PTT (Actin FS) Sodium 132 L Potassium 4.3 Chloride 98 Carbon Dioxide 24 Anion Gap 10 BUN 19 H Creatinine 0.6 Creat Clearance w eGFR 98.83 Random Glucose 76 Serum Osmolality Calcium 9.4 Phosphorus 2.7 Magnesium 2.1 Ferritin 72.1 Total Bilirubin 0.8 AST 75 H ALT 37 Alkaline Phosphatase 121 H Creatine Kinase Troponin I Total Protein 5.8 L Albumin 2.8 L Lipase TSH 1.93 Free T4 1.18 Urine Color Urine Appearance Urine pH Ur Specific [place] Urine Protein Urine Glucose (UA) Urine Ketones Urine Blood Urine Nitrite Urine Bilirubin Urine Urobilinogen Ur Leukocyte Esterase Urine WBC (Auto) Urine RBC (Auto) Urine Casts (Auto) U Pathogenic Cast Auto U Epithel Cells (Auto) Urine Bacteria (Auto) Ur Random Sodium Stool Occult Blood Acetone, Qual Blood Type Antibody Screen 02/23/19 02/23/19 02/23/19 08:10 09:24 13:35 WBC RBC Hgb Hct MCV MCH MCHC RDW Plt Count MPV Absolute Neuts (auto) Neutrophils % Lymphocytes % Monocytes % Eosinophils % Basophils % Nucleated RBC % PT with INR INR PTT (Actin FS) Sodium Potassium Chloride Carbon Dioxide Anion Gap BUN Creatinine Creat Clearance w eGFR Random Glucose Serum Osmolality Calcium Phosphorus Magnesium Ferritin Total Bilirubin AST ALT Alkaline Phosphatase Creatine Kinase Troponin I Total Protein Albumin Lipase TSH Free T4 Urine Color Urine Appearance Urine pH Ur Specific [place] Urine Protein Urine Glucose (UA) Urine Ketones Urine Blood Urine Nitrite Urine Bilirubin Urine Urobilinogen Ur Leukocyte Esterase Urine WBC (Auto) Urine RBC (Auto) Urine Casts (Auto) U Pathogenic Cast Auto U Epithel Cells (Auto) Urine Bacteria (Auto) Ur Random Sodium 40 Stool Occult Blood Acetone, Qual Blood Type A POSITIVE A POSITIVE Antibody Screen Negative 02/23/19 13:40 WBC 7.4 RBC 3.29 L Hgb 7.5 L Hct 23.6 L MCV 71.8 L MCH 22.7 L MCHC 31.6 L RDW 16.1 H Plt Count 257 MPV 7.9 Absolute Neuts (auto) Neutrophils % Lymphocytes % Monocytes % Eosinophils % Basophils % Nucleated RBC % PT with INR INR PTT (Actin FS) Sodium Potassium Chloride Carbon Dioxide Anion Gap BUN Creatinine Creat Clearance w eGFR Random Glucose Serum Osmolality Calcium Phosphorus Magnesium Ferritin Total Bilirubin AST ALT Alkaline Phosphatase Creatine Kinase Troponin I Total Protein Albumin Lipase TSH Free T4 Urine Color Urine Appearance Urine pH Ur Specific [place] Urine Protein Urine Glucose (UA) Urine Ketones Urine Blood Urine Nitrite Urine Bilirubin Urine Urobilinogen Ur Leukocyte Esterase Urine WBC (Auto) Urine RBC (Auto) Urine Casts (Auto) U Pathogenic Cast Auto U Epithel Cells (Auto) Urine Bacteria (Auto) Ur Random Sodium Stool Occult Blood Acetone, Qual Blood Type Antibody Screen Active Medications Generic Name Dose Route Start Last Admin Trade Name Freq PRN Reason Stop Dose Admin Sodium Chloride 1,000 mls @ 75 mls/hr 02/23/19 07:30 02/23/19 11:05 Normal Saline - IV 75 mls/hr ASDIR L[place] Administration Latanoprost 1 drop 02/23/19 22:00 Xalatan 0.005% Eye Drops - OU HS [place] Pantoprazole Sodium 40 mg 02/23/19 10:00 02/23/19 11:06 Protonix - PO 40 mg BID [place] Administration Timolol Maleate 1 drop 02/23/19 10:00 Timoptic 0.5% OU DAILY [place] ASSESSMENT/PLAN: 68 y/o F w/PMH of glaucoma and no medical follow up in many years who presented to the ER for decreased PO intake. Found to have mets to liver, lung, spine on CT. -Metastatic Disease -Will need investigation into primary source -Tissue biopsy from liver via IR recommended. Last use of 81mg ASA was Saturday morning. -FOBT +, anemic, initial source possibly colonic -monitor H/H. Transfuse if Hgb <7 -IR and GI recs Dispo: We will continue to follow the patient. Thank you for this consultative opportunity. Visit type - Emergency Visit Emergency Visit: Yes ED Registration Date: 02/22/19 Care time: The patient presented to the Emergency Department on the above date and was hospitalized for further evaluation of their emergent condition. - New Patient This patient is new to me today: Yes Date on this admission: 02/23/19 - Critical Care Critical Care patient: No
[2019-02-23] MEDS ORDERED: PT OWN MED DRAWER 7, Y5N ONE (15:11)
[2019-02-23] MEDS: TIMOLOL 0.5% OPHTHALMIC SOL 5 ML BOTTLE OU SCH (15:14)
--- NOTE | 2019-02-23 17:42 | PN ---
Teaching Attending Note Name of Resident: Edward Neil ATTENDING PHYSICIAN STATEMENT I saw and evaluated the patient. I reviewed the resident's note and discussed the case with the resident. I agree with the resident's findings and plan as documented. ASSESSMENT AND PLAN: 68 y/o F w/PMH of glaucoma and no medical follow up in many years who presented to the ER for decreased PO intake/failure to thrive /abdominal pain Found to have mets to liver, lung, spine on CT. check cea level last ds of asa 02/21 am consider ir guided liver bx
--- NOTE | 2019-02-23 17:45 | PN ---
Physical Exam: SUBJECTIVE: Patient seen and examined at bedside this morning. Patient is a 68 year old female with past medical history of glaucoma, presented to the ED due to abdominal pain for about 5 weeks. Patient reported having a fall about 5 weeks ago and since then, "has not felt herself". Patient also reported loss of appetite, due to nausea and is unable to keep the food down. Her also reports weight loss in the last few weeks and weakness. Patient has not seen a doctor for years, and has not had any screening tests done. She denies fever, chills, cough, colds, headache, dizziness, chest pain, SOB, abdominal pain, changes in bowel habits, bloody stool or urine. OBJECTIVE: Vital Signs Temperature 98.1 F 02/23/19 11:11 Pulse Rate 72 02/23/19 11:11 Respiratory Rate 20 02/23/19 11:11 Blood Pressure 132/72 02/23/19 11:11 O2 Sat by Pulse Oximetry (%) 97 02/23/19 08:58 GENERAL: The patient is awake, alert, and fully oriented, in no acute distress, cachectic. HEAD: Normal with no signs of trauma. EYES:sclera anicteric, conjunctiva clear ENT:oropharynx clear without exudates, dry mucous membranes. NECK: Trachea midline, full range of motion, supple. LUNGS: Breath sounds equal, clear to auscultation bilaterally. HEART: Regular rate and rhythm, S1, S2 without murmur, rub or gallop. ABDOMEN: Soft, nontender, nondistended, normoactive bowel sounds, no masses. EXTREMITIES: 2+ pulses, warm, well-perfused, no edema. NEUROLOGICAL: Cranial nerves II through XII grossly intact. Normal speech, gait not observed. PSYCH: Normal mood, normal affect. SKIN: Warm, dry, normal turgor, no rashes or lesions noted Laboratory Results - last 24 hr 02/22/19 02/22/19 02/22/19 13:51 15:55 20:21 WBC RBC Hgb Hct MCV MCH MCHC RDW Plt Count MPV Absolute Neuts (auto) Neutrophils % Lymphocytes % Monocytes % Eosinophils % Basophils % Nucleated RBC % PT with INR INR PTT (Actin FS) Sodium 131 L Potassium 4.4 Chloride 92 L Carbon Dioxide 29 Anion Gap 10 BUN 23 H Creatinine 0.8 Creat Clearance w eGFR 70.91 Random Glucose 111 H Serum Osmolality 276 L Calcium 10.2 H Phosphorus Magnesium 2.1 Ferritin Total Bilirubin 0.7 AST 82 H ALT 41 Alkaline Phosphatase 145 H Creatine Kinase 37 Troponin I < 0.02 Total Protein 6.6 Albumin 3.4 Lipase 185 TSH Free T4 Urine Color Yellow Urine Appearance Cloudy Urine pH 5.0 Ur Specific [place] 1.032 Urine Protein 1+ H Urine Glucose (UA) Negative Urine Ketones Trace H Urine Blood Negative Urine Nitrite Negative Urine Bilirubin Negative Urine Urobilinogen 1.0 Ur Leukocyte Esterase Trace Urine WBC (Auto) 4 Urine RBC (Auto) 3 Urine Casts (Auto) 22 U Pathogenic Cast Auto yes U Epithel Cells (Auto) 2.1 Urine Bacteria (Auto) 1.9 Urine Osmolality Ur Random Sodium Stool Occult Blood Positive Blood Type Antibody Screen 02/23/19 02/23/19 02/23/19 00:53 05:55 05:55 WBC 6.4 6.4 RBC 3.21 L 3.12 L Hgb 7.3 L 7.1 L Hct 23.1 L 22.3 L MCV 72.1 L 71.4 L MCH 22.6 L 22.9 L MCHC 31.4 L 32.0 RDW 16.0 H 16.0 H Plt Count 244 241 MPV 8.2 8.1 Absolute Neuts (auto) 5.0 4.8 Neutrophils % 78.0 74.8 Lymphocytes % 13.2 17.1 D Monocytes % 8.2 7.7 Eosinophils % 0.2 D 0.2 Basophils % 0.4 0.2 Nucleated RBC % 0 0 PT with INR INR PTT (Actin FS) Sodium Potassium Chloride Carbon Dioxide Anion Gap BUN Creatinine Creat Clearance w eGFR Random Glucose Serum Osmolality 288 Calcium Phosphorus Magnesium Ferritin Total Bilirubin AST ALT Alkaline Phosphatase Creatine Kinase Troponin I Total Protein Albumin Lipase TSH Free T4 Urine Color Urine Appearance Urine pH Ur Specific [place] Urine Protein Urine Glucose (UA) Urine Ketones Urine Blood Urine Nitrite Urine Bilirubin Urine Urobilinogen Ur Leukocyte Esterase Urine WBC (Auto) Urine RBC (Auto) Urine Casts (Auto) U Pathogenic Cast Auto U Epithel Cells (Auto) Urine Bacteria (Auto) Urine Osmolality Ur Random Sodium Stool Occult Blood Blood Type Antibody Screen 02/23/19 02/23/19 02/23/19 05:55 05:55 05:55 WBC RBC Hgb Hct MCV MCH MCHC RDW Plt Count MPV Absolute Neuts (auto) Neutrophils % Lymphocytes % Monocytes % Eosinophils % Basophils % Nucleated RBC % PT with INR 15.50 H INR 1.31 H PTT (Actin FS) 25.1 L Sodium 132 L Potassium 4.3 Chloride 98 Carbon Dioxide 24 Anion Gap 10 BUN 19 H Creatinine 0.6 Creat Clearance w eGFR 98.83 Random Glucose 76 Serum Osmolality Calcium 9.4 Phosphorus 2.7 Magnesium 2.1 Ferritin 72.1 Total Bilirubin 0.8 AST 75 H ALT 37 Alkaline Phosphatase 121 H Creatine Kinase Troponin I Total Protein 5.8 L Albumin 2.8 L Lipase TSH 1.93 Free T4 Urine Color Urine Appearance Urine pH Ur Specific [place] Urine Protein Urine Glucose (UA) Urine Ketones Urine Blood Urine Nitrite Urine Bilirubin Urine Urobilinogen Ur Leukocyte Esterase Urine WBC (Auto) Urine RBC (Auto) Urine Casts (Auto) U Pathogenic Cast Auto U Epithel Cells (Auto) Urine Bacteria (Auto) Urine Osmolality Ur Random Sodium Stool Occult Blood Blood Type Antibody Screen 02/23/19 02/23/19 02/23/19 05:55 08:10 09:24 WBC RBC Hgb Hct MCV MCH MCHC RDW Plt Count MPV Absolute Neuts (auto) Neutrophils % Lymphocytes % Monocytes % Eosinophils % Basophils % Nucleated RBC % PT with INR INR PTT (Actin FS) Sodium Potassium Chloride Carbon Dioxide Anion Gap BUN Creatinine Creat Clearance w eGFR Random Glucose Serum Osmolality Calcium Phosphorus Magnesium Ferritin Total Bilirubin AST ALT Alkaline Phosphatase Creatine Kinase Troponin I Total Protein Albumin Lipase TSH Free T4 1.18 Urine Color Urine Appearance Urine pH Ur Specific [place] Urine Protein Urine Glucose (UA) Urine Ketones Urine Blood Urine Nitrite Urine Bilirubin Urine Urobilinogen Ur Leukocyte Esterase Urine WBC (Auto) Urine RBC (Auto) Urine Casts (Auto) U Pathogenic Cast Auto U Epithel Cells (Auto) Urine Bacteria (Auto) Urine Osmolality Ur Random Sodium Stool Occult Blood Blood Type A POSITIVE A POSITIVE Antibody Screen Negative 02/23/19 02/23/19 02/23/19 13:35 13:35 13:40 WBC 7.4 RBC 3.29 L Hgb 7.5 L Hct 23.6 L MCV 71.8 L MCH 22.7 L MCHC 31.6 L RDW 16.1 H Plt Count 257 MPV 7.9 Absolute Neuts (auto) Neutrophils % Lymphocytes % Monocytes % Eosinophils % Basophils % Nucleated RBC % PT with INR INR PTT (Actin FS) Sodium Potassium Chloride Carbon Dioxide Anion Gap BUN Creatinine Creat Clearance w eGFR Random Glucose Serum Osmolality Calcium Phosphorus Magnesium Ferritin Total Bilirubin AST ALT Alkaline Phosphatase Creatine Kinase Troponin I Total Protein Albumin Lipase TSH Free T4 Urine Color Urine Appearance Urine pH Ur Specific [place] Urine Protein Urine Glucose (UA) Urine Ketones Urine Blood Urine Nitrite Urine Bilirubin Urine Urobilinogen Ur Leukocyte Esterase Urine WBC (Auto) Urine RBC (Auto) Urine Casts (Auto) U Pathogenic Cast Auto U Epithel Cells (Auto) Urine Bacteria (Auto) Urine Osmolality 683 Ur Random Sodium 40 Stool Occult Blood Blood Type Antibody Screen Active Medications Generic Name Dose Route Start Last Admin Trade Name Freq PRN Reason Stop Dose Admin Sodium Chloride 1,000 mls @ 75 mls/hr 02/23/19 07:30 02/23/19 11:05 Normal Saline - IV 75 mls/hr ASDIR [place] Administration Latanoprost 1 drop 02/23/19 22:00 Xalatan 0.005% Eye Drops - OU HS [place] Pantoprazole Sodium 40 mg 02/23/19 10:00 02/23/19 11:06 Protonix - PO 40 mg BID [place] Administration Timolol Maleate 1 drop 02/23/19 10:00 02/23/19 15:14 Timoptic 0.5% OU 1 drop DAILY [place] Administration ASSESSMENT/PLAN: Patient is a 68 year old female with past medical history of glaucoma, presented with abdominal pain, accompanied by poor oral intake and weight loss for approximately 5 weeks. #Failure to thrive 2/2 metastatic cancer -CTAP: Diffuse liver metastasis. Bone metastases. Tiny juxtapleural and pleural- based nodules in the included lower lung measuring up to 4mm which are nonspecific. -Metastatic cancer of unknown primary source -Oncology (Dr. Randall) consulted. REcommendations appreciated. -tissue biopsy from liver via IR. Last use of ASA saturday. -transfuse PRN -CEA level -PT/PTT -GI (Dr. Mcnamara) consulted. Recommendations appreciated. -FOBT + -Colonoscopy is unlikely to be fruitful in terms of primary diagnosis without evidence of colonic wall thickening or regional lymphadenopathy on CT -Would recommend IR guided liver biopsy for tissue diagnosis #Microcytic anemia likely 2/2 possible GI source, malignancy -H/H 7.1 --> 7.5 -will continue to monitor -Iron studies pending -Keep Hgb >7, transfuse PRN -GI (Dr. Mcnamara) consulted. Recommendations appreciated. #Hyponatremia: possible SIADH vs poor oral intake -Na 131 --> 132 after 2L NS -will continue to monitor -Urine Osm and urine Na normal -patient encourage to increase PO intake #Glaucoma -Continue home Timolol #FEN -IV NS @75cc/hr -Encourage increased oral fluid intake -Hyponatremia, will continue to monitor -Chopped diet, with Ensure/magic cup #Prophylaxis -SCDs -Protonix 40mg daily #Disposition -full code -med surg Visit type - Emergency Visit Emergency Visit: Yes ED Registration Date: 02/22/19 Care time: The patient presented to the Emergency Department on the above date and was hospitalized for further evaluation of their emergent condition. - New Patient This patient is new to me today: Yes Date on this admission: 02/23/19 - Critical Care Critical Care patient: No
[2019-02-23] MEDS: LATANOPROST 0.005% OPHTH SOLN 2.5ML BOTTLE OU SCH (23:53)
[2019-02-24 04:10] LABS: SERUM IRON SATURATION 6 % (15-55); TOTAL IRON BINDING CAPACITY 301 ug/dL (250-450); UIBC 282 ug/dL (118-369)
[2019-02-24 07:37] LABS: BASO % 0.2 % (0-2.0); EOS % 0.3 % (0-4.5); HEMATOCRIT 24.6 % (32.4-45.2); LYMPH % 14.9 % (8-40); MCH 23.2 pg (25.7-33.7); MCHC 32.4 g/dl (32.0-36.0); MEAN CELL VOLUME 71.6 fl (80-96); MEAN PLT VOLUME 8.2 fl (7.5-11.1); MONO % 6.5 % (3.8-10.2); NEUT % 78.1 % (42.8-82.8); PLATELET COUNT 277 K/MM3 (134-434); RBC 3.44 M/mm3 (3.60-5.2); RDW 16.2 % (11.6-15.6)
--- NOTE | 2019-02-24 08:33 | PN ---
Teaching Attending Note Name of Resident: Gloria Azul ATTENDING PHYSICIAN STATEMENT I saw and evaluated the patient. I reviewed the resident's note and discussed the case with the resident. I agree with the resident's findings and plan as documented. SUBJECTIVE: Patient continues to have difficulty with swallowing. OBJECTIVE: Vital Signs Temperature 98.3 F 02/24/19 04:00 Pulse Rate 77 02/24/19 04:00 Respiratory Rate 20 02/24/19 04:00 Blood Pressure 138/75 02/24/19 04:00 O2 Sat by Pulse Oximetry (%) 97 02/23/19 08:58 GENERAL: The patient is awake, alert, and fully oriented, in no acute distress, cachectic. HEAD: Normal with no signs of trauma. EYES:sclera anicteric, conjunctiva clear, left eye opacification ENT:oropharynx clear without exudates, dry mucous membranes. NECK: Trachea midline, full range of motion, supple. LUNGS: Breath sounds equal, clear to auscultation bilaterally. HEART: Regular rate and rhythm, S1, S2 without murmur, rub or gallop. ABDOMEN: Soft, nontender, nondistended, normoactive bowel sounds, no masses. EXTREMITIES: 2+ pulses, warm, well-perfused, no edema. NEUROLOGICAL: Cranial nerves II through XII grossly intact. Normal speech, gait not observed. PSYCH: Normal mood, normal affect. SKIN: Warm, dry, normal turgor, no rashes or lesions noted CBCD WBC 8.0 K/mm3 (4.0-10.0) 02/24/19 06:30 RBC 3.44 M/mm3 (3.60-5.2) L 02/24/19 06:30 Hgb 8.0 GM/dL (10.7-15.3) L 02/24/19 06:30 Hct 24.6 % (32.4-45.2) L 02/24/19 06:30 MCV 71.6 fl (80-96) L 02/24/19 06:30 MCHC 32.4 g/dl (32.0-36.0) 02/24/19 06:30 RDW 16.2 % (11.6-15.6) H 02/24/19 06:30 Plt Count 277 K/MM3 (134-434) 02/24/19 06:30 MPV 8.2 fl (7.5-11.1) 02/24/19 06:30 CMP Sodium 132 mmol/L (136-145) L 02/23/19 05:55 Potassium 4.3 mmol/L (3.5-5.1) 02/23/19 05:55 Chloride 98 mmol/L (98-107) 02/23/19 05:55 Carbon Dioxide 24 mmol/L (21-32) 02/23/19 05:55 Anion Gap 10 MMOL/L (8-16) 02/23/19 05:55 BUN 19 mg/dL (7-18) H 02/23/19 05:55 Creatinine 0.6 mg/dL (0.55-1.3) 02/23/19 05:55 Creat Clearance w eGFR 98.83 (>60) 02/23/19 05:55 Random Glucose 76 mg/dL (74-106) 02/23/19 05:55 Calcium 9.4 mg/dL (8.5-10.1) 02/23/19 05:55 Total Bilirubin 0.8 mg/dL (0.2-1) 02/23/19 05:55 AST 75 U/L (15-37) H 02/23/19 05:55 ALT 37 U/L (13-61) 02/23/19 05:55 Alkaline Phosphatase 121 U/L (45-117) H 02/23/19 05:55 Total Protein 5.8 g/dl (6.4-8.2) L 02/23/19 05:55 Albumin 2.8 g/dl (3.4-5.0) L 02/23/19 05:55 CARDIAC ENZYMES Creatine Kinase 37 U/L (26-192) 02/22/19 13:51 Troponin I < 0.02 ng/ml (0.00-0.05) 02/22/19 13:51 Current Medications Generic Name Dose Route Start Last Admin Trade Name Freq PRN Reason Stop Dose Admin Sodium Chloride 1,000 mls @ 75 mls/hr 02/23/19 07:30 02/23/19 11:05 Normal Saline - IV 75 mls/hr ASDIR [place] Administration Latanoprost 1 drop 02/23/19 22:00 02/23/19 23:53 Xalatan 0.005% Eye Drops - OU 1 drop HS [place] Administration Pantoprazole Sodium 40 mg 02/23/19 10:00 02/23/19 21:48 Protonix - PO 40 mg BID [place] Administration Timolol Maleate 1 drop 02/23/19 10:00 02/23/19 15:14 Timoptic 0.5% OU 1 drop DAILY [place] Administration Home Medications Medication Instructions Recorded Aspirin 81 mg PO DAILY 02/22/19 Bimatoprost [Lumigan] 1 drop OU DAILY 02/22/19 Timolol 0.5% [Timoptic 0.5%] 1 drop OU DAILY 02/22/19 CTAP: Diffuse liver metastasis. Bone metastases. Tiny juxtapleural and pleural- based nodules in the included lower lung measuring up to 4mm which are nonspecific. ASSESSMENT AND PLAN: Patient is a 68 year old female with PMHx of glaucoma( left ) presented with abdominal pain, with decreased oral intake for over 3 weeks , where she lost around 40 pounds for approximately 5 weeks. #Undiagnosed metastatic disease unknown primary: to liver, bone, multiple lung nodules: GI/oncology on board #Failure to thrive due to metastatic disease; nutrition consult, patient is s/ p MBS, positive for stricture. patient can only have little sips of water. Further evaluation is needed by GI and oncology # BMI of 18.2, malnutrition: dietary consult appreciated #Microcytic anemia due to malignancy; Gi for consult for colonoscopy/EGD w/u for gastric mass vs colon , GI and oncology for consult ;iron studies #Acute Hyponatremia: due to poor oral intake vs malignancy , will hydrate her normal saline IV #Glaucoma with left eye opacification : Continue with her home eye drops DVT Px: SCD , no ac due to GIB
[2019-02-24 08:52] LABS: INR 1.33 (0.83-1.09); PROTHROMBIN TIME (PATIENT) 15.7 SEC (9.7-13.0)
[2019-02-24 08:55] LABS: ACTIVATED PTT 26.6 SECONDS (25.2-36.5)
--- NOTE | 2019-02-24 09:52 | PN ---
Progress Note, MANUFACTURING SYSTEMS ENGINEER - Note Progress Note: Selected Entries 02/23/19 02/23/19 02/23/19 03:32 06:10 11:11 Diet Tolerated Temperature 98.3 F 98.7 F 98.1 F 02/23/19 02/23/19 02/24/19 20:00 22:05 04:00 Diet Tolerated Refused Temperature 98.0 F 98.3 F Laboratory Tests 02/24/19 06:30 WBC 8.0 On chopped diet/thin liquids. Pt is oriented but not the best historian, having difficulty describing her symptoms consistently. Initially saying she only had water and had no trouble. She has no appetite, and food doesn't taste good to her.She has trouble eating "because of her teeth. " However, when she had Ensure it "came back up" on her. She denied heaving/ vomiting but it just came up. r/o esophageal dysphagia? Consider mbs/esophageal screen for abnormal structure/function?
[2019-02-24 10:30] LABS: BLOOD UREA NITROGEN 15 mg/dL (7-18); GLUCOSE,RANDOM 81 mg/dL (74-106)
[2019-02-24 10:31] LABS: ALBUMIN 2.8 g/dl (3.4-5.0); CALCIUM 9.5 mg/dL (8.5-10.1); CHLORIDE 98 mmol/L (98-107); CREATININE 0.6 mg/dL (0.55-1.3); SODIUM 131 mmol/L (136-145); TOT PROT 5.9 g/dl (6.4-8.2)
[2019-02-24 10:32] LABS: ALK PHOS 145 U/L (45-117); ANION GAP 9 MMOL/L (8-16); BILIRUBIN,TOTAL 0.9 mg/dL (0.2-1); CO2 24 mmol/L (21-32); PHOSPHOROUS 2.1 mg/dL (2.5-4.9); SGOT/AST 87 U/L (15-37); SGPT/ALT 40 U/L (13-61)
[2019-02-24] MEDS: TIMOLOL 0.5% OPHTHALMIC SOL 5 ML BOTTLE OU SCH (11:07)
--- NOTE | 2019-02-24 11:40 | PN ---
Physical Exam: SUBJECTIVE: Patient seen and examined at bedside this morning. No acute events overnight. Patient reports she is not eating because she just has no appetite and reports food goes back up when she tries to swallow. OBJECTIVE: Vital Signs Temperature 98.3 F 02/24/19 04:00 Pulse Rate 77 02/24/19 04:00 Respiratory Rate 20 02/24/19 04:00 Blood Pressure 138/75 02/24/19 04:00 O2 Sat by Pulse Oximetry (%) 97 02/23/19 08:58 GENERAL: The patient is awake, alert, and fully oriented, in no acute distress, cachectic. HEAD: Normal with no signs of trauma. EYES:sclera anicteric, conjunctiva clear ENT:oropharynx clear without exudates, dry mucous membranes. NECK: Trachea midline, full range of motion, supple. LUNGS: Breath sounds equal, clear to auscultation bilaterally. HEART: Regular rate and rhythm, S1, S2 without murmur, rub or gallop. ABDOMEN: Soft, nontender, nondistended, normoactive bowel sounds, no masses. EXTREMITIES: 2+ pulses, warm, well-perfused, no edema. NEUROLOGICAL: Cranial nerves II through XII grossly intact. Normal speech, gait not observed. PSYCH: Normal mood, normal affect. SKIN: Warm, dry, normal turgor, no rashes or lesions noted Laboratory Results - last 24 hr 02/23/19 02/23/19 02/23/19 05:55 13:35 13:35 WBC RBC Hgb Hct MCV MCH MCHC RDW Plt Count MPV Absolute Neuts (auto) Neutrophils % Lymphocytes % Monocytes % Eosinophils % Basophils % Nucleated RBC % PT with INR INR PTT (Actin FS) Sodium Potassium Chloride Carbon Dioxide Anion Gap BUN Creatinine Creat Clearance w eGFR Random Glucose Calcium Phosphorus Magnesium Iron 19 L TIBC 301 Iron Saturation 6 L Total Bilirubin AST ALT Alkaline Phosphatase Total Protein Albumin Urine Osmolality 683 Ur Random Sodium 40 02/23/19 02/24/19 02/24/19 13:40 06:30 06:30 WBC 7.4 8.0 RBC 3.29 L 3.44 L Hgb 7.5 L 8.0 L Hct 23.6 L 24.6 L MCV 71.8 L 71.6 L MCH 22.7 L 23.2 L MCHC 31.6 L 32.4 RDW 16.1 H 16.2 H Plt Count 257 277 MPV 7.9 8.2 Absolute Neuts (auto) 6.3 Neutrophils % 78.1 Lymphocytes % 14.9 Monocytes % 6.5 Eosinophils % 0.3 Basophils % 0.2 Nucleated RBC % 0 PT with INR 15.70 H INR 1.33 H PTT (Actin FS) 26.6 Sodium Potassium Chloride Carbon Dioxide Anion Gap BUN Creatinine Creat Clearance w eGFR Random Glucose Calcium Phosphorus Magnesium Iron TIBC Iron Saturation Total Bilirubin AST ALT Alkaline Phosphatase Total Protein Albumin Urine Osmolality Ur Random Sodium 02/24/19 06:30 WBC RBC Hgb Hct MCV MCH MCHC RDW Plt Count MPV Absolute Neuts (auto) Neutrophils % Lymphocytes % Monocytes % Eosinophils % Basophils % Nucleated RBC % PT with INR INR PTT (Actin FS) Sodium 131 L Potassium 4.0 Chloride 98 Carbon Dioxide 24 Anion Gap 9 BUN 15 Creatinine 0.6 Creat Clearance w eGFR 98.83 Random Glucose 81 Calcium 9.5 Phosphorus 2.1 L Magnesium 2.0 Iron TIBC Iron Saturation Total Bilirubin 0.9 AST 87 H ALT 40 Alkaline Phosphatase 145 H Total Protein 5.9 L Albumin 2.8 L Urine Osmolality Ur Random Sodium Active Medications Generic Name Dose Route Start Last Admin Trade Name Freq PRN Reason Stop Dose Admin Sodium Chloride 1,000 mls @ 75 mls/hr 02/23/19 07:30 02/23/19 11:05 Normal Saline - IV 75 mls/hr ASDIR [place] Administration Latanoprost 1 drop 02/23/19 22:00 02/23/19 23:53 Xalatan 0.005% Eye Drops - OU 1 drop HS [place] Administration Pantoprazole Sodium 40 mg 02/23/19 10:00 02/23/19 21:48 Protonix - PO 40 mg BID [place] Administration Timolol Maleate 1 drop 02/23/19 10:00 02/24/19 11:07 Timoptic 0.5% OU 1 drop DAILY [place] Administration ASSESSMENT/PLAN: Patient is a 68 year old female with past medical history of glaucoma, presented with abdominal pain, accompanied by poor oral intake and weight loss for approximately 5 weeks. #Failure to thrive 2/2 metastatic cancer -CTAP: Diffuse liver metastasis. Bone metastases. Tiny juxtapleural and pleural- based nodules in the included lower lung measuring up to 4mm which are nonspecific. -Metastatic cancer of unknown primary source -Oncology (Dr. Randall) consulted. REcommendations appreciated. -tissue biopsy from liver via IR. Last use of ASA saturday. -transfuse PRN -CEA level -PT/PTT -GI (Dr. Santos) consulted. Recommendations appreciated. -FOBT positive -Colonoscopy is unlikely to be fruitful in terms of primary diagnosis without evidence of colonic wall thickening or regional lymphadenopathy on CT -Given MBS findings, for possible EGD tomorrow. -NPO after midnight. -Speech and swallow consulted. Recommendations appreciated. -Modified barium swallow: Stasis of barium in the thoracic esophagus with minimal passage of barium into the stomach. Stricture is observed at the GE junction concerning for a malignant process. Upper endoscopy recommended. -HOB elevated. Esophagus full of barium with risk of retrograde aspiration. Allow time to empty. #Microcytic anemia likely 2/2 possible GI source, malignancy: stable -H/H 8.0/24.6 -will continue to monitor -Iron studies pending -Keep Hgb >7, transfuse PRN -GI (Dr. Santos) consulted. Recommendations appreciated. #Hyponatremia: likely 2/2 poor oral intake -Na 131 -will continue to monitor -Urine Osm and urine Na normal -patient encouraged to increase PO intake -IV NS #Glaucoma -Continue home Timolol #FEN -IV NS @75cc/hr -Encourage increased oral fluid intake -Hyponatremia, will continue to monitor -Chopped diet, with Ensure/magic cup #Prophylaxis -SCDs -Protonix 40mg daily #Disposition -full code -med surg Visit type - Emergency Visit Emergency Visit: Yes ED Registration Date: 02/22/19 Care time: The patient presented to the Emergency Department on the above date and was hospitalized for further evaluation of their emergent condition. - New Patient This patient is new to me today: No - Critical Care Critical Care patient: No
--- NOTE | 2019-02-24 13:37 | PN ---
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 NPO. HOB elevated. Esophagus full of barium with risk of retrograde aspiration. Allow time to empty. Results reviewed with PMD.
[2019-02-24] MEDS: PANTOPRAZOLE 40 MG TABLET (FP) PO SCH (13:54)
[2019-02-24] MEDS: SODIUM CHLORIDE 1,000 ML IV SCH (13:54)
[2019-02-24] MEDS ORDERED: NAPH,MB-DB/K PH,MBDB POWDER PACKET PO ONE (13:55)
--- NOTE | 2019-02-24 15:32 | PN.GI ---
GI Progress Note Subjective: No acute events No abdominal pain Had S/S eval today secondary to dysphagia complaints : MBS revealed narrowing at GE Junction concerning for malignant process Patient's present at bedside - Objective Vital Signs: Vital Signs Temperature 98.3 F 02/24/19 08:00 Pulse Rate 77 02/24/19 04:00 Respiratory Rate 18 02/24/19 08:00 Blood Pressure 127/62 02/24/19 08:00 O2 Sat by Pulse Oximetry (%) 97 02/23/19 08:58 Constitutional: Calm Eyes: No: Sclera Icterus Cardiovascular: Yes: Regular Rate and Rhythm, Murmur Respiratory: Yes: CTA Bilaterally Gastrointestinal Inspection: No: Distention ...Auscultate: Yes: Normoactive Bowel Sounds ...Palpate: Yes: Soft. No: Tenderness ...Percussion: No: Tympanitic Edema: No (No LE edema) Neurological: Yes: Alert Labs: CBC, BMP 02/24/19 06:30 02/24/19 06:30 INR, PTT INR 1.33 (0.83-1.09) H 02/24/19 06:30 Hepatic Panel Total Bilirubin 0.9 mg/dL (0.2-1) 02/24/19 06:30 AST 87 U/L (15-37) H 02/24/19 06:30 ALT 40 U/L (13-61) 02/24/19 06:30 Alkaline Phosphatase 145 U/L (45-117) H 02/24/19 06:30 Albumin 2.8 g/dl (3.4-5.0) L 02/24/19 06:30 Problem List - Problems (1) Dysphagia Assessment/Plan: With abnormal MBS: concerning for malignant process per radiologist Discussed upper endoscopy with possible dilation with Ms. Roth and her , who was present at bedside. Discussed potential risks of the procedure like but not limited to bleeding, perforation requiring surgery to repair, infection, sedation medication effects all of which could be potentially life threatening. She has agreed to the procedure. NPO after midnight for possible EGD Await Head CT Code(s): R13.10 - DYSPHAGIA, UNSPECIFIED
[2019-02-24] MEDS: PANTOPRAZOLE SODIUM 40 MG VIAL IVPUSH SCH (15:35)
--- NOTE | 2019-02-24 19:36 | PN ---
Progress Note (short form) - Note Progress Note: Patient seen Has had dysphagia and scheduled for EGD. Vomited up solids today. Last ASA 02/21. Discussed with GI
[2019-02-24] MEDS: LATANOPROST 0.005% OPHTH SOLN 2.5ML BOTTLE OU SCH (21:39)
[2019-02-25 06:44] LABS: BASO % 0.2 % (0-2.0); EOS % 0.2 % (0-4.5); HEMATOCRIT 23.1 % (32.4-45.2); HEMOGLOBIN 7.3 GM/dL (10.7-15.3); LYMPH % 14.3 % (8-40); MCH 22.8 pg (25.7-33.7); MCHC 31.8 g/dl (32.0-36.0); MEAN CELL VOLUME 71.6 fl (80-96); MONO % 6.4 % (3.8-10.2); NEUT % 78.9 % (42.8-82.8); PLATELET COUNT 226 K/MM3 (134-434); RBC 3.22 M/mm3 (3.60-5.2); RDW 16.1 % (11.6-15.6); WHITE BLOOD COUNT 6.2 K/mm3 (4.0-10.0)
[2019-02-25 07:08] LABS: ALBUMIN 2.6 g/dl (3.4-5.0); ALK PHOS 133 U/L (45-117); ANION GAP 11 MMOL/L (8-16); BILIRUBIN,TOTAL 0.8 mg/dL (0.2-1); BLOOD UREA NITROGEN 14 mg/dL (7-18); CALCIUM 9.2 mg/dL (8.5-10.1); CHLORIDE 103 mmol/L (98-107); CO2 23 mmol/L (21-32); CREATININE 0.6 mg/dL (0.55-1.3); GLUCOSE,RANDOM 80 mg/dL (74-106); MAGNESIUM 1.8 mg/dL (1.8-2.4); POTASSIUM 4.2 mmol/L (3.5-5.1); SGOT/AST 74 U/L (15-37); SGPT/ALT 34 U/L (13-61); SODIUM 137 mmol/L (136-145); TOT PROT 5.4 g/dl (6.4-8.2)
[2019-02-25] MEDS ORDERED: MIDAZOLAM HCL 2 MG/2 ML SINGLE DOSE VIAL ONE (12:49)
--- NOTE | 2019-02-25 13:56 | PN ---
Progress Note (short form) - Note Progress Note: EGD performed today revealing a large, friable fungating GEJ mass extending towards the cardia concerning for malignancy. Multiple biopsies taken. See scanned report for full details. Recommendations: -Await pathology results -NPO for now -Could resume clear liquid as tolerated and as deemed appropriate per HANDSTITCHING MACHINE COLLAR FELLER in am -CT chest to complete staging workup -Oncology consultation/follow up Discussed with patient and patient's after the procedure
--- NOTE | 2019-02-25 14:17 | PN ---
Physical Exam: SUBJECTIVE: Patient seen and examined. Had EGD today. Unable to tolerate solids yesterday. OBJECTIVE: Vital Signs Period Temp Pulse Resp BP Sys/Lilly Pulse Ox Last 24 Hr 97.5 F-98.3 F 68-93 16-22 112-131/62-83 100-100 GENERAL: Awake, alert, and fully oriented, in no acute distress. HEAD: Normal with no signs of trauma. EYES: L eye blindness EARS, NOSE, THROAT: Ears normal, nares patent LUNGS: Breath sounds equal, clear to auscultation bilaterally. No wheezes, and no crackles. No accessory muscle use. HEART: Regular rate and rhythm, normal S1 and S2 ABDOMEN: Soft, nontender, not distended, normoactive bowel sounds MUSCULOSKELETAL: No spinal tenderness LOWER EXTREMITIES: warm, well-perfused. No peripheral edema. NEUROLOGICAL: Cranial nerves II-XII intact. Normal speech. Gait not observed. PSYCHIATRIC: Cooperative. Good eye contact. Appropriate mood and affect. SKIN: Warm, dry LYMPH: No pre-auricular, cervical, axillary, supraclavicular LAD. Laboratory Results - last 24 hr 02/24/19 02/25/19 02/25/19 06:30 05:30 05:30 WBC 6.2 RBC 3.22 L Hgb 7.3 L Hct 23.1 L MCV 71.6 L MCH 22.8 L MCHC 31.8 L RDW 16.1 H Plt Count 226 MPV 8.0 Absolute Neuts (auto) 4.9 Neutrophils % 78.9 Lymphocytes % 14.3 Monocytes % 6.4 Eosinophils % 0.2 Basophils % 0.2 Nucleated RBC % 0 Sodium 137 Potassium 4.2 Chloride 103 Carbon Dioxide 23 Anion Gap 11 BUN 14 Creatinine 0.6 Creat Clearance w eGFR 98.83 Random Glucose 80 Calcium 9.2 Phosphorus 2.0 L Magnesium 1.8 Total Bilirubin 0.8 AST 74 H ALT 34 Alkaline Phosphatase 133 H Total Protein 5.4 L Albumin 2.6 L Carcinoembryonic Ag 32.8 H Active Medications Generic Name Dose Route Start Last Admin Trade Name Freq PRN Reason Stop Dose Admin Sodium Chloride 1,000 mls @ 75 mls/hr 02/23/19 07:30 02/24/19 13:54 Normal Saline - IV 75 mls/hr ASDIR [place] Administration Latanoprost 1 drop 02/23/19 22:00 04/16/19 21:39 Xalatan 0.005% Eye Drops - OU 1 drop HS [place] Administration Pantoprazole Sodium 40 mg 02/24/19 14:30 02/24/19 15:35 Protonix Iv IVPUSH 40 mg DAILY [place] Administration Timolol Maleate 1 drop 02/23/19 10:00 02/24/19 11:07 Timoptic 0.5% OU 1 drop DAILY [place] Administration ASSESSMENT/PLAN: 68 y/o F w/PMH of glaucoma and no medical follow up in many years who presented to the ER for decreased PO intake. Found to have mets to liver, lung, spine on CT. -Metastatic Disease -Tissue biopsy from liver via IR recommended. Last use of 81mg ASA was Saturday morning. -FOBT +, anemic, initial source possibly colonic -monitor H/H. Transfuse if Hgb <7 -EGD done today which showed a large friable fungating GEJ mass extending towards cardia. Mass noted as concerning for malignancy -A/w biopsy results of mass. -Bone scan, chest CT -Will still need liver biopsy -GI on board Visit type - Emergency Visit Emergency Visit: Yes ED Registration Date: 02/22/19 Care time: The patient presented to the Emergency Department on the above date and was hospitalized for further evaluation of their emergent condition. - New Patient This patient is new to me today: No - Critical Care Critical Care patient: No
[2019-02-25] MEDS: TIMOLOL 0.5% OPHTHALMIC SOL 5 ML BOTTLE OU SCH (15:17)
[2019-02-25] MEDS: PANTOPRAZOLE SODIUM 40 MG VIAL IVPUSH SCH (15:23)
--- NOTE | 2019-02-25 15:28 | PN ---
Physical Exam: SUBJECTIVE: Patient seen and examined at bedside this morning. No acute events overnight. Patient continued to experience nausea and loss of appetite. No episodes of vomiting overnight. OBJECTIVE: Vital Signs Temperature 97.5 F L 02/25/19 13:18 Pulse Rate 77 02/25/19 13:48 Respiratory Rate 20 02/25/19 13:48 Blood Pressure 130/69 02/25/19 13:48 O2 Sat by Pulse Oximetry (%) 100 02/25/19 13:48 GENERAL: The patient is awake, alert, and fully oriented, in no acute distress, cachectic. HEAD: Normal with no signs of trauma. EYES:sclera anicteric, conjunctiva clear ENT:oropharynx clear without exudates, dry mucous membranes. NECK: Trachea midline, full range of motion, supple. LUNGS: Breath sounds equal, clear to auscultation bilaterally. HEART: Regular rate and rhythm, S1, S2 without murmur, rub or gallop. ABDOMEN: Soft, nontender, nondistended, normoactive bowel sounds, no masses. EXTREMITIES: 2+ pulses, warm, well-perfused, no edema. NEUROLOGICAL: Cranial nerves II through XII grossly intact. Normal speech, gait not observed. PSYCH: Normal mood, normal affect. SKIN: Warm, dry, normal turgor, no rashes or lesions noted Laboratory Results - last 24 hr 02/24/19 02/25/19 02/25/19 06:30 05:30 05:30 WBC 6.2 RBC 3.22 L Hgb 7.3 L Hct 23.1 L MCV 71.6 L MCH 22.8 L MCHC 31.8 L RDW 16.1 H Plt Count 226 MPV 8.0 Absolute Neuts (auto) 4.9 Neutrophils % 78.9 Lymphocytes % 14.3 Monocytes % 6.4 Eosinophils % 0.2 Basophils % 0.2 Nucleated RBC % 0 Sodium 137 Potassium 4.2 Chloride 103 Carbon Dioxide 23 Anion Gap 11 BUN 14 Creatinine 0.6 Creat Clearance w eGFR 98.83 Random Glucose 80 Calcium 9.2 Phosphorus 2.0 L Magnesium 1.8 Total Bilirubin 0.8 AST 74 H ALT 34 Alkaline Phosphatase 133 H Total Protein 5.4 L Albumin 2.6 L Carcinoembryonic Ag 32.8 H Active Medications Generic Name Dose Route Start Last Admin Trade Name Freq PRN Reason Stop Dose Admin Sodium Chloride 1,000 mls @ 75 mls/hr 02/23/19 07:30 02/24/19 13:54 Normal Saline - IV 75 mls/hr ASDIR [place] Administration Latanoprost 1 drop 02/23/19 22:00 02/24/19 21:39 Xalatan 0.005% Eye Drops - OU 1 drop HS [place] Administration Pantoprazole Sodium 40 mg 02/24/19 14:30 02/24/19 15:35 Protonix Iv IVPUSH 40 mg DAILY [place] Administration Timolol Maleate 1 drop 02/23/19 10:00 02/24/19 11:07 Timoptic 0.5% OU 1 drop DAILY [place] Administration ASSESSMENT/PLAN: Patient is a 68 year old female with past medical history of glaucoma, presented with abdominal pain, accompanied by poor oral intake and weight loss for approximately 5 weeks. #Failure to thrive 2/2 metastatic cancer -CTAP: Diffuse liver metastasis. Bone metastases. Tiny juxtapleural and pleural- based nodules in the included lower lung measuring up to 4mm which are nonspecific. -Metastatic cancer of unknown primary source -Oncology (Dr. Randall) consulted. Recommendations appreciated. -transfuse PRN -CEA level -PT/PTT -GI (Dr. Romero) consulted. Recommendations appreciated. -FOBT positive -EGD done: large, friable fungating GE junction mass extending towards the cardia concerning for malignancy. Multiple biopsies taken. -Would await pathology results -NPO for now. Could resume clear liquid as tolerated and await speech and swallow eval in the morning. -CT chest to complete staging work up -Speech and swallow consulted. Recommendations appreciated. -Modified barium swallow: Stasis of barium in the thoracic esophagus with minimal passage of barium into the stomach. Stricture is observed at the GE junction concerning for a malignant process. Upper endoscopy recommended. -HOB elevated. Esophagus full of barium with risk of retrograde aspiration. Allow time to empty. #Microcytic anemia likely 2/2 possible GI source, malignancy: stable -H/H 7.3/23.1 -will continue to monitor -Iron studies done -Keep Hgb >7, transfuse PRN #Hyponatremia: likely 2/2 poor oral intake, improved -Na 137 -will continue to monitor -Urine Osm and urine Na normal -patient encouraged to increase PO intake -IV NS #Glaucoma -Continue home Timolol #FEN -IV NS @75cc/hr -Electrolyte wnl, routine bmpmonitoring -Would keep NPO for now. #Prophylaxis -SCDs -Protonix 40mg daily #Disposition -full code -med surg Visit type - Emergency Visit Emergency Visit: Yes ED Registration Date: 02/22/19 Care time: The patient presented to the Emergency Department on the above date and was hospitalized for further evaluation of their emergent condition. - New Patient This patient is new to me today: No - Critical Care Critical Care patient: No
[2019-02-25] MEDS: SODIUM CHLORIDE 1,000 ML IV SCH (15:32)
--- NOTE | 2019-02-25 17:53 | PN ---
Teaching Attending Note Name of Resident: Edward Neil ATTENDING PHYSICIAN STATEMENT I saw and evaluated the patient. I reviewed the resident's note and discussed the case with the resident. I agree with the resident's findings and plan as documented. 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 Will need bone scan, MRI of spine, and chest CT to complete work up. Will need to address question of nutrition in view of near obstructing tumor. Last Vital Signs Temp Pulse Resp BP Pulse Ox 97.6 F 75 18 135/69 98 02/25/19 16:26 02/25/19 16:26 02/25/19 16:26 02/25/19 16:26 02/25/19 16:26 HEENT: ISSA, EOM Intact Oropharynx: No thrush, No mucositis Cor: RSR, No murmurs, No gallops Lungs: Clear to P&A Abd: Sliver firm 8 c below RCM Ext:No significant edema,SCD Skin: No rashes, Integument intact CBC, BMP 02/25/19 05:30 02/25/19 05:30 Current Medications Generic Name Dose Route Start Last Admin Trade Name Freq PRN Reason Stop Dose Admin Sodium Chloride 1,000 mls @ 75 mls/hr 02/23/19 07:30 02/25/19 15:32 Normal Saline - IV Not Given ASDIR [place] Latanoprost 1 drop 02/23/19 22:00 02/24/19 21:39 Xalatan 0.005% Eye Drops - OU 1 drop HS [place] Administration Pantoprazole Sodium 40 mg 02/24/19 14:30 02/25/19 15:23 Protonix Iv IVPUSH 40 mg DAILY [place] Administration Timolol Maleate 1 drop 02/23/19 10:00 02/25/19 15:17 Timoptic 0.5% OU 1 drop DAILY [place] Administration 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 To discuss question of nutrition Anemia- to monitor OBJECTIVE: ASSESSMENT AND PLAN:
--- NOTE | 2019-02-25 19:19 | PN ---
Teaching Attending Note Name of Resident: Lesly Barry ATTENDING PHYSICIAN STATEMENT I saw and evaluated the patient. I reviewed the resident's note and discussed the case with the resident. I agree with the resident's findings and plan as documented. SUBJECTIVE: Seen and examined at bedside this morning, present. No complaints, no acute events overnight. Hungry. OBJECTIVE: Vital Signs - 24 hr 02/25/19 02/25/19 02/25/19 06:46 10:25 13:18 Temperature 98.3 F 98.3 F 97.5 F L Pulse Rate 93 H 78 87 Respiratory 20 18 22 H Rate Blood Pressure 112/64 127/62 126/83 O2 Sat by Pulse 100 Oximetry (%) 02/25/19 02/25/19 02/25/19 13:33 13:48 15:00 Temperature 97.6 F Pulse Rate 79 77 75 Respiratory 22 H 20 18 Rate Blood Pressure 131/63 130/69 135/69 O2 Sat by Pulse 100 100 Oximetry (%) 02/25/19 02/25/19 16:15 16:26 Temperature 98 F 97.6 F Pulse Rate 69 75 Respiratory 18 18 Rate Blood Pressure 127/71 135/69 O2 Sat by Pulse 98 Oximetry (%) PHYSICAL EXAM: GENERAL: NAD, cachectic ENT: oropharynx clear, dry MM NECK: Trachea midline, supple CVS: s1s2, RRR, no mrg LUNGS: CTA b/l, unlabored, no w/r/r ABDOMEN: Soft, NT/ND, NABS EXTREMITIES: 2+ pulses, no edema Current Medications Generic Name Dose Route Start Last Admin Trade Name Freq PRN Reason Stop Dose Admin Sodium Chloride 1,000 mls @ 75 mls/hr 02/23/19 07:30 02/25/19 15:32 Normal Saline - IV Not Given ASDIR [place] Latanoprost 1 drop 02/23/19 22:00 02/24/19 21:39 Xalatan 0.005% Eye Drops - OU 1 drop HS [place] Administration Pantoprazole Sodium 40 mg 02/24/19 14:30 02/25/19 15:23 Protonix Iv IVPUSH 40 mg DAILY [place] Administration Timolol Maleate 1 drop 02/23/19 10:00 02/25/19 15:17 Timoptic 0.5% OU 1 drop DAILY [place] Administration Laboratory Last Values WBC 6.2 K/mm3 (4.0-10.0) 02/25/19 05:30 RBC 3.22 M/mm3 (3.60-5.2) L 02/25/19 05:30 Hgb 7.3 GM/dL (10.7-15.3) L 02/25/19 05:30 Hct 23.1 % (32.4-45.2) L 02/25/19 05:30 MCV 71.6 fl (80-96) L 02/25/19 05:30 MCH 22.8 pg (25.7-33.7) L 02/25/19 05:30 MCHC 31.8 g/dl (32.0-36.0) L 02/25/19 05:30 RDW 16.1 % (11.6-15.6) H 02/25/19 05:30 Plt Count 226 K/MM3 (134-434) 02/25/19 05:30 MPV 8.0 fl (7.5-11.1) 02/25/19 05:30 Absolute Neuts (auto) 4.9 K/mm3 (1.5-8.0) 02/25/19 05:30 Neutrophils % 78.9 % (42.8-82.8) 02/25/19 05:30 Lymphocytes % 14.3 % (8-40) 02/25/19 05:30 Monocytes % 6.4 % (3.8-10.2) 02/25/19 05:30 Eosinophils % 0.2 % (0-4.5) 02/25/19 05:30 Basophils % 0.2 % (0-2.0) 02/25/19 05:30 Nucleated RBC % 0 % (0-0) 02/25/19 05:30 PT with INR 15.70 SEC (9.7-13.0) H 02/24/19 06:30 INR 1.33 (0.83-1.09) H 02/24/19 06:30 PTT (Actin FS) 26.6 SECONDS (25.2-36.5) 02/24/19 06:30 Sodium 137 mmol/L (136-145) 02/25/19 05:30 Potassium 4.2 mmol/L (3.5-5.1) 02/25/19 05:30 Chloride 103 mmol/L (98-107) 02/25/19 05:30 Carbon Dioxide 23 mmol/L (21-32) 02/25/19 05:30 Anion Gap 11 MMOL/L (8-16) 02/25/19 05:30 BUN 14 mg/dL (7-18) 02/25/19 05:30 Creatinine 0.6 mg/dL (0.55-1.3) 02/25/19 05:30 Creat Clearance w eGFR 98.83 (>60) 02/25/19 05:30 Random Glucose 80 mg/dL (74-106) 02/25/19 05:30 Serum Osmolality 288 mosm/kg (278-305) 02/23/19 05:55 Calcium 9.2 mg/dL (8.5-10.1) 02/25/19 05:30 Phosphorus 2.0 mg/dL (2.5-4.9) L 02/25/19 05:30 Magnesium 1.8 mg/dL (1.8-2.4) 02/25/19 05:30 Iron 19 ug/dL (27-139) L 02/23/19 05:55 TIBC 301 ug/dL (250-450) 02/23/19 05:55 Iron Saturation 6 % (15-55) L 02/23/19 05:55 Ferritin 72.1 ng/ml (8-388) 02/23/19 05:55 Total Bilirubin 0.8 mg/dL (0.2-1) 02/25/19 05:30 AST 74 U/L (15-37) H 02/25/19 05:30 ALT 34 U/L (13-61) 02/25/19 05:30 Alkaline Phosphatase 133 U/L (45-117) H 02/25/19 05:30 Creatine Kinase 37 U/L (26-192) 02/22/19 13:51 Troponin I < 0.02 ng/ml (0.00-0.05) 02/22/19 13:51 Total Protein 5.4 g/dl (6.4-8.2) L 02/25/19 05:30 Albumin 2.6 g/dl (3.4-5.0) L 02/25/19 05:30 Lipase 185 U/L (73-393) 02/22/19 13:51 Carcinoembryonic Ag 32.8 ng/mL (0.0-4.7) H 02/24/19 06:30 TSH 1.93 uIU/ml (0.358-3.74) 02/23/19 05:55 Free T4 1.18 ng/dl (0.76-1.46) 02/23/19 05:55 Urine Color Yellow 02/22/19 15:55 Urine Appearance Cloudy 02/22/19 15:55 Urine pH 5.0 (5.0-8.0) 02/22/19 15:55 Ur Specific [place] 1.032 (1.010-1.035) 02/22/19 15:55 Urine Protein 1+ (NEGATIVE) H 02/22/19 15:55 Urine Glucose (UA) Negative (NEGATIVE) 02/22/19 15:55 Urine Ketones Trace (NEGATIVE) H 02/22/19 15:55 Urine Blood Negative (NEGATIVE) 02/22/19 15:55 Urine Nitrite Negative (NEGATIVE) 02/22/19 15:55 Urine Bilirubin Negative (NEGATIVE) 02/22/19 15:55 Urine Urobilinogen 1.0 mg/dL (0.2-1.0) 02/22/19 15:55 Ur Leukocyte Esterase Trace (NEGATIVE) 02/22/19 15:55 Urine WBC (Auto) 4 /hpf (0-5) 02/22/19 15:55 Urine RBC (Auto) 3 /hpf (0-4) 02/22/19 15:55 Urine Casts (Auto) 22 /hpf (0-8) 02/22/19 15:55 U Pathogenic Cast Auto yes (NEGATIVE) 02/22/19 15:55 U Epithel Cells (Auto) 2.1 /HPF (0-5/HPF) 02/22/19 15:55 Urine Bacteria (Auto) 1.9 /hpf (NEGATIVE) 02/22/19 15:55 Urine Osmolality 683 mosm/kg (300-900) 02/23/19 13:35 Ur Random Sodium 40 MMOL/L (40-220) 02/23/19 13:35 Stool Occult Blood Positive (NEGATIVE) 02/22/19 20:21 Acetone, Qual Negative (NEGATIVE) L 02/22/19 14:00 Blood Type A POSITIVE 02/23/19 09:24 Antibody Screen Negative 02/23/19 08:10 ALL IMAGING REPORTS REVIEWED ASSESSMENT AND PLAN: 68 year old female with no significant PMHx presented with abdominal pain, with decreased oral intake for over 3 weeks, and weight loss of 40 pounds over 1 month. 1) Metastatic disease-liver/lung/bone -EGD today reveals friable GE junctional tumor, biopsies taken -further workup ordered, bone scan, chest CT and spine MRI -advance diet as tolerated-awaiting speech/swallow eval -aspiration precautions -oncology and GI following 2) CARL secondary to malignancy -NPO, start IV venofer -monitor h/h and transfuse for goal>7
[2019-02-25] MEDS: LATANOPROST 0.005% OPHTH SOLN 2.5ML BOTTLE OU SCH (21:14)
[2019-02-26 06:57] LABS: HEMATOCRIT 23.1 % (32.4-45.2); HEMOGLOBIN 7.3 GM/dL (10.7-15.3); MCH 22.5 pg (25.7-33.7); MCHC 31.5 g/dl (32.0-36.0); MEAN CELL VOLUME 71.3 fl (80-96); PLATELET COUNT 196 K/MM3 (134-434); RBC 3.23 M/mm3 (3.60-5.2); RDW 16.1 % (11.6-15.6)
[2019-02-26 07:26] LABS: ALBUMIN 2.6 g/dl (3.4-5.0); ALK PHOS 131 U/L (45-117); ANION GAP 12 MMOL/L (8-16); BILIRUBIN,TOTAL 0.8 mg/dL (0.2-1); BLOOD UREA NITROGEN 13 mg/dL (7-18); CALCIUM 9.4 mg/dL (8.5-10.1); CHLORIDE 106 mmol/L (98-107); CO2 22 mmol/L (21-32); CREATININE 0.6 mg/dL (0.55-1.3); GLUCOSE,RANDOM 82 mg/dL (74-106); MAGNESIUM 1.9 mg/dL (1.8-2.4); PHOSPHOROUS 2.1 mg/dL (2.5-4.9); POTASSIUM 3.9 mmol/L (3.5-5.1); SGOT/AST 74 U/L (15-37); SGPT/ALT 34 U/L (13-61); SODIUM 141 mmol/L (136-145); TOT PROT 5.2 g/dl (6.4-8.2)
[2019-02-26] MEDS: SODIUM CHLORIDE 1,000 ML IV SCH (08:00)
--- NOTE | 2019-02-26 09:40 | PN ---
Progress Note, INSURANCE INSTRUCTOR - Note Progress Note: MBS with noted stricture with little passage of thin liquid to the stomach. EGD revealed tumor at GE junction. 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 w/u in progress. Pt did spit up barium after MBS. IMP:Pt is at high risk of vomiting/retrograde aspiration with PO intake. REC: Continue NPO. Mouth care. Seated fully upright- Tiny sips of water/ice chips, as tolerated, for comfort. Maintain upright after intake D/C trials of water if vomiting, increased congestion Consider IV clinimix Oncology/GI input regarding alternate means of nutrition intake/ Cancer mgmt Palliative care ordered regarding end of life issues-nutrition/DNR/DNI
--- NOTE | 2019-02-26 10:05 | PN ---
Progress Note (short form) - Note Progress Note: EGD reviewed. GE Junction mass extending to cardia, compromising the lumen enough to necessitate changing from adult (9mm diameter) to pediatric endoscope (6mm diameter). Concern is re: means of nutrition and discussed with Dr. Steve: Given compromise of esophageal lumen, would not be able to perform palliative PEG. IR would require NGT for insufflation of the stomach. Surgical G-tube could lead to delay in any possible treatment options. Esophageal stenting likely least invasive option. Placed call to Dr. Kehinde Mckeon at [facility] to discuss transfer for evaluation for stent Small sips of clears if she can tolerate. If not, strict NPO, IV hydration Problem List - Problems (1) Dysphagia Code(s): R13.10 - DYSPHAGIA, UNSPECIFIED
[2019-02-26] MEDS: TIMOLOL 0.5% OPHTHALMIC SOL 5 ML BOTTLE OU SCH (10:42)
[2019-02-26] MEDS: PANTOPRAZOLE SODIUM 40 MG VIAL IVPUSH SCH (10:43)
--- NOTE | 2019-02-26 10:55 | PN ---
Physical Exam: SUBJECTIVE: Patient seen and examined at bedside. NPO so has had not tried food or liquids yet. No new complaints. OBJECTIVE: Vital Signs Temperature 98.1 F 02/26/19 06:54 Pulse Rate 78 02/26/19 06:54 Respiratory Rate 20 02/26/19 06:54 Blood Pressure 127/69 02/26/19 06:54 O2 Sat by Pulse Oximetry (%) 98 02/25/19 21:00 GENERAL: Awake, alert, and fully oriented, in no acute distress. HEAD: Normal with no signs of trauma. EYES: L eye blindness EARS, NOSE, THROAT: Ears normal, nares patent LUNGS: Breath sounds equal, clear to auscultation bilaterally. No wheezes, and no crackles. No accessory muscle use. HEART: Regular rate and rhythm, normal S1 and S2 ABDOMEN: Soft, nontender, not distended, normoactive bowel sounds MUSCULOSKELETAL: No spinal tenderness LOWER EXTREMITIES: warm, well-perfused. No peripheral edema. NEUROLOGICAL: Cranial nerves II-XII intact. Normal speech. Gait not observed. PSYCHIATRIC: Cooperative. Good eye contact. Appropriate mood and affect. SKIN: Warm, dry Laboratory Results - last 24 hr 02/26/19 02/26/19 05:30 05:30 WBC 7.0 RBC 3.23 L Hgb 7.3 L Hct 23.1 L MCV 71.3 L MCH 22.5 L MCHC 31.5 L RDW 16.1 H Plt Count 196 MPV 8.0 Sodium 141 Potassium 3.9 Chloride 106 Carbon Dioxide 22 Anion Gap 12 BUN 13 Creatinine 0.6 Creat Clearance w eGFR 98.83 Random Glucose 82 Calcium 9.4 Phosphorus 2.1 L Magnesium 1.9 Total Bilirubin 0.8 AST 74 H ALT 34 Alkaline Phosphatase 131 H Total Protein 5.2 L Albumin 2.6 L Active Medications Generic Name Dose Route Start Last Admin Trade Name Freq PRN Reason Stop Dose Admin Sodium Chloride 1,000 mls @ 75 mls/hr 02/23/19 07:30 02/26/19 08:00 Normal Saline - IV 75 mls/hr ASDIR [place] Administration Latanoprost 1 drop 02/23/19 22:00 02/25/19 21:14 Xalatan 0.005% Eye Drops - OU 1 drop HS [place] Administration Pantoprazole Sodium 40 mg 02/24/19 14:30 02/26/19 10:43 Protonix Iv IVPUSH 40 mg DAILY [place] Administration Timolol Maleate 1 drop 02/23/19 10:00 02/26/19 10:42 Timoptic 0.5% OU 1 drop DAILY [place] Administration ASSESSMENT/PLAN: 68 y/o F w/PMH of glaucoma and no medical follow up in many years who presented to the ER for decreased PO intake. Found to have mets to liver, lung, spine on CT. -Metastatic Disease -Tissue biopsy from liver. Last use of 81mg ASA was Saturday morning. -FOBT +, anemic, initial source possibly colonic -monitor H/H. Transfuse if Hgb <7 -EGD done today which showed a large friable fungating GEJ mass extending towards cardia. Mass noted as concerning for malignancy -A/w biopsy results of mass. -Likely will need esophageal stent -Bone scan, chest CT -Will still need liver biopsy -GI on board -Possible transfer for esophageal stent as per GI Visit type - Emergency Visit Emergency Visit: Yes ED Registration Date: 02/22/19 Care time: The patient presented to the Emergency Department on the above date and was hospitalized for further evaluation of their emergent condition. - New Patient This patient is new to me today: No - Critical Care Critical Care patient: No
[2019-02-26 11:13] VITALS: BP 140/77; PULSE 83; TEMP 98.3
--- NOTE | 2019-02-26 11:13 | PN ---
Physical Exam: SUBJECTIVE: Patient seen and examined at bedside this morning. No acute events overnight. Patient was kept NPO since yesterday. she reports being thirsty but still no appetite. Patient reports also being "hot", with wet towel improving her symptoms. Denies fever, chills, headache, dizziness, chest pain, SOB, abdominal pain, diarrhea, urinary symptoms. OBJECTIVE: Vital Signs Temperature 98.1 F 02/26/19 06:54 Pulse Rate 78 02/26/19 06:54 Respiratory Rate 20 02/26/19 06:54 Blood Pressure 127/69 02/26/19 06:54 O2 Sat by Pulse Oximetry (%) 98 02/25/19 21:00 GENERAL: The patient is awake, alert, and fully oriented, in no acute distress, cachectic. HEAD: Normal with no signs of trauma. EYES:sclera anicteric, conjunctiva clear ENT:oropharynx clear without exudates, dry mucous membranes. NECK: Trachea midline, full range of motion, supple. LUNGS: Breath sounds equal, clear to auscultation bilaterally. HEART: Regular rate and rhythm, S1, S2 without murmur, rub or gallop. ABDOMEN: Soft, nontender, nondistended, normoactive bowel sounds, no masses. EXTREMITIES: 2+ pulses, warm, well-perfused, no edema. NEUROLOGICAL: Cranial nerves II through XII grossly intact. Normal speech, gait not observed. PSYCH: Normal mood, normal affect. SKIN: Warm, dry, normal turgor, no rashes or lesions noted Laboratory Results - last 24 hr 02/26/19 02/26/19 05:30 05:30 WBC 7.0 RBC 3.23 L Hgb 7.3 L Hct 23.1 L MCV 71.3 L MCH 22.5 L MCHC 31.5 L RDW 16.1 H Plt Count 196 MPV 8.0 Sodium 141 Potassium 3.9 Chloride 106 Carbon Dioxide 22 Anion Gap 12 BUN 13 Creatinine 0.6 Creat Clearance w eGFR 98.83 Random Glucose 82 Calcium 9.4 Phosphorus 2.1 L Magnesium 1.9 Total Bilirubin 0.8 AST 74 H ALT 34 Alkaline Phosphatase 131 H Total Protein 5.2 L Albumin 2.6 L Active Medications Generic Name Dose Route Start Last Admin Trade Name Freq PRN Reason Stop Dose Admin Sodium Chloride 1,000 mls @ 75 mls/hr 02/23/19 07:30 02/26/19 08:00 Normal Saline - IV 75 mls/hr ASDIR [place] Administration Latanoprost 1 drop 02/23/19 22:00 02/25/19 21:14 Xalatan 0.005% Eye Drops - OU 1 drop HS [place] Administration Pantoprazole Sodium 40 mg 02/24/19 14:30 02/26/19 10:43 Protonix Iv IVPUSH 40 mg DAILY [place] Administration Timolol Maleate 1 drop 02/23/19 10:00 02/26/19 10:42 Timoptic 0.5% OU 1 drop DAILY [place] Administration ASSESSMENT/PLAN: Patient is a 68 year old female with past medical history of glaucoma, presented with abdominal pain, accompanied by poor oral intake and weight loss for approximately 5 weeks. #Failure to thrive 2/2 metastatic cancer -CTAP: Diffuse liver metastasis. Bone metastases. Tiny juxtapleural and pleural- based nodules in the included lower lung measuring up to 4mm which are nonspecific. -FOBT positive -Metastatic cancer of unknown primary source -Bone scan done today -For Liver biopsy tomorrow -CEA, CA19-9 pending -Oncology (Dr. Steve) consulted. Recommendations appreciated. -For bone scan and chest CT to complete staging work-up -GI (Dr. Santos) consulted. Recommendations appreciated. -EGD done: large, friable fungating GE junction mass extending towards the cardia concerning for malignancy. Multiple biopsies taken. -Concern for patient's nutrition. Esophageal stenting likely least invasive option. -Speech and swallow consulted. Recommendations appreciated. -Modified barium swallow: Stasis of barium in the thoracic esophagus with minimal passage of barium into the stomach. Stricture is observed at the GE junction. -Continue NPO. Seated fully upright, with tiny sips of water/ice chips as tolerated. Maintain upright after intake. -Discontinue trials of water if vomiting. -Consider IV clinimix. -Palliative care consulted. #Microcytic anemia likely 2/2 possible GI source, malignancy: stable -H/H 7.3/23.1 -will continue to monitor -Iron studies done -Keep Hgb >7, transfuse PRN #Hyponatremia: likely 2/2 poor oral intake, improved -Na 141 -will continue to monitor -Urine Osm and urine Na normal -patient encouraged to increase PO intake -IV NS #Glaucoma -Continue home Timolol #FEN -IV NS @75cc/hr -Electrolyte wnl, routine bmpmonitoring -Would keep NPO for now. #Prophylaxis -SCDs -Protonix 40mg daily #Disposition -full code -med surg Visit type - Emergency Visit Emergency Visit: Yes ED Registration Date: 02/22/19 Care time: The patient presented to the Emergency Department on the above date and was hospitalized for further evaluation of their emergent condition. - New Patient This patient is new to me today: No - Critical Care Critical Care patient: No
--- NOTE | 2019-02-26 12:25 | PATH ---
Surgical Pathology Report Patient Name: COLETTE HERNANDEZ Med. Rec. #: [id number] /Age/Gender: 1950 (Age: 68) / F Account: [id number] Location: [facility] MED/SURG Taken: 02/25/2019 Received: 02/25/2019 Reported: 02/26/2019 Physicians: MD Ezio Mcknight M.D. Specimen(s) Received GE JUNCTION MASS Clinical History Dysphagia, anemia Postoperative diagnosis: GE junction mass Final Diagnosis GE JUNCTION, MASS, BIOPSY: INVASIVE ADENOCARCINOMA, MODERATELY DIFFERENTIATED. SEE COMMENT. Comment: Case seen in intradepartmental review with consensus on diagnosis. HER2(IHC) is pending. Findings will be reported as an addendum. Findings discussed with Dr. Romero. Electronically Signed Liz Powlel M.D. Addendum Reported: 03/05/2019 Addendum Diagnosis HER2 IHC ANALYSIS performed and interpreted by [facility] in [place], CT shows the following: Marker Result Interpretation HER2 IHC 0 Negative See [facility] report (Specimen #: [id number]) for additional details. Wilson Juarez M.D. Gross Description Received in formalin, labeled "biopsy GE junction mass" are 5 walker, irregular portions of soft tissue ranging from 0.1-0.4 cm. in greatest dimension. The specimens are submitted in toto in one cassette. /02/25/2019 saudi02/25/2019
[2019-02-26] MEDS ORDERED: POTASSIUM PHOSPHATE 15 MM in SODIUM CHLORIDE 250 ML IVPB ONE (14:00)
--- NOTE | 2019-02-26 14:06 | DS ---
Physical Exam: SUBJECTIVE: Patient seen and examined at bedside this morning. No acute events overnight. OBJECTIVE: Vital Signs Temperature 98.3 F 02/26/19 10:00 Pulse Rate 83 02/26/19 10:00 Respiratory Rate 20 02/26/19 10:00 Blood Pressure 140/77 02/26/19 10:00 O2 Sat by Pulse Oximetry (%) 98 02/26/19 09:00 PHYSICAL EXAM GENERAL: The patient is awake, alert, and fully oriented, in no acute distress, cachectic. HEAD: Normal with no signs of trauma. EYES:sclera anicteric, conjunctiva clear ENT:oropharynx clear without exudates, dry mucous membranes. NECK: Trachea midline, full range of motion, supple. LUNGS: Breath sounds equal, clear to auscultation bilaterally. HEART: Regular rate and rhythm, S1, S2 without murmur, rub or gallop. ABDOMEN: Soft, nontender, nondistended, normoactive bowel sounds, no masses. EXTREMITIES: 2+ pulses, warm, well-perfused, no edema. NEUROLOGICAL: Cranial nerves II through XII grossly intact. Normal speech, gait not observed. PSYCH: Normal mood, normal affect. SKIN: Warm, dry, normal turgor, no rashes or lesions noted. LABS Laboratory Results - last 24 hr 02/26/19 02/26/19 05:30 05:30 WBC 7.0 RBC 3.23 L Hgb 7.3 L Hct 23.1 L MCV 71.3 L MCH 22.5 L MCHC 31.5 L RDW 16.1 H Plt Count 196 MPV 8.0 Sodium 141 Potassium 3.9 Chloride 106 Carbon Dioxide 22 Anion Gap 12 BUN 13 Creatinine 0.6 Creat Clearance w eGFR 98.83 Random Glucose 82 Calcium 9.4 Phosphorus 2.1 L Magnesium 1.9 Total Bilirubin 0.8 AST 74 H ALT 34 Alkaline Phosphatase 131 H Total Protein 5.2 L Albumin 2.6 L HOSPITAL COURSE: Date of Admission:02/22/19 Date of Discharge: 02/26/19 Patient is a 68 year old female with past medical history of glaucoma, presented with abdominal pain and dysphagia, accompanied by poor oral intake and weight loss for approximately 5 weeks. On admission, CT scan was done which revealed diffuse liver metastasis, bone and lung metastasis. Oncology and GI were consulted. Patient underwent modified barium swallow for dysphagia and was noted to have stricture at the GE junction. EGD was done which revealed large, friable fungating GE junction mass extending towards the cardia. Multiple biopsies taken. Patient was transferred to [facility] for esophageal stenting under Dr. Kehinde Mckeon. Minutes to complete discharge: 40 Discharge Summary Reason For Visit: MALIGNANT NEOPLASM OF LIVER SECONDARY ANEMIA Current Active Problems Cancer with pulmonary metastases (Acute) Dysphagia (Acute) Hyponatremia (Acute) Liver malignancy (Acute) Mass of esophagus determined by endoscopy (Acute) Symptomatic anemia (Acute) Weight loss, non-intentional (Acute) Condition: Stable - Instructions Diet, Activity, Other Instructions: You were admitted to the hospital because you were have belly pain and difficulty swallowing. CAT scan showed that you have multiple masses on your lungs, liver and bone. 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 You underwent endoscopy and a mass on your esophagus was seen. You will be transferred to a tertiary care center for higher level of care. Disposition: TRANSFER ACUTE CARE/OTHER HOSP - Home Medications Comprehensive Discharge Medication List: Ambulatory Orders Aspirin 81 mg PO DAILY 02/22/19 Bimatoprost [Lumigan] 1 drop OU DAILY 02/22/19 Timolol 0.5% [Timoptic 0.5%] 1 drop OU DAILY 02/22/19 This patient is new to me today: No Emergency Visit: Yes ED Registration Date: 02/22/19 Care time: The patient presented to the Emergency Department on the above date and was hospitalized for further evaluation of their emergent condition. Critical Care patient: No - Discharge Referral Referred to [facility] No
--- NOTE | 2019-02-26 17:43 | PN ---
Teaching Attending Note Name of Resident: Gloria Azul ATTENDING PHYSICIAN STATEMENT I saw and evaluated the patient. I reviewed the resident's note and discussed the case with the resident. I agree with the resident's findings and plan as documented. SUBJECTIVE: Patient complains of feeling thirsty. She still has abdominal pain. OBJECTIVE: Vital Signs Period Temp Pulse Resp BP Sys/Lilly Pulse Ox Last 24 Hr 97.9 F-98.3 F 68-83 18-20 123-140/59-77 98-98 HEART: S1S2, RRR LUNGS: Clear ABDOMEN: Would not allow exam EXTREMITIES: Trace edema Laboratory Results - last 24 hr 02/26/19 02/26/19 05:30 05:30 WBC 7.0 RBC 3.23 L Hgb 7.3 L Hct 23.1 L MCV 71.3 L MCH 22.5 L MCHC 31.5 L RDW 16.1 H Plt Count 196 MPV 8.0 Sodium 141 Potassium 3.9 Chloride 106 Carbon Dioxide 22 Anion Gap 12 BUN 13 Creatinine 0.6 Creat Clearance w eGFR 98.83 Random Glucose 82 Calcium 9.4 Phosphorus 2.1 L Magnesium 1.9 Total Bilirubin 0.8 AST 74 H ALT 34 Alkaline Phosphatase 131 H Total Protein 5.2 L Albumin 2.6 L ASSESSMENT AND PLAN: This is a 68 year old woman with no significant medical history who presented to the ED with abdominal pain and weight loss. 1. Adenocarcinoma of GE junction, moderately differentiated, with liver mets - Bone scan pending - Chest CT ordered - Will need liver biopsy - Patient being transferred to [facility] today for evaluation for esophageal stent placement and further management 2. Iron deficiency anemia
== END 2019-02-26 15:22 | disposition short-term general hospital (02) | DRG 435 ==
LOC: JER 10:17 → JERBED 19:12 → J8W 02-23 08:18 → JERBED 02-23 08:19 → J8W 02-23 10:27
PROVIDERS: ADMIT Internal Medicine; ATTEND Internal Medicine
PROC: 0DD48ZX Extraction of Esophagogastric Junction, Via Natural or Artificial Opening Endoscopic, Diagnostic (ICD-10-PCS; principal; 2019-02-25 11:00)
DX: C78.7 Secondary malignant neoplasm of liver and intrahepatic bile duct (principal); E43 Unspecified severe protein-calorie malnutrition; E87.1 Hypo-osmolality and hyponatremia; E46 Unspecified protein-calorie malnutrition; Z68.1 Body mass index [BMI] 19.9 or less, adult; R64 Cachexia; C78.00 Secondary malignant neoplasm of unspecified lung; C79.51 Secondary malignant neoplasm of bone; C78.89 Secondary malignant neoplasm of other digestive organs; C80.1 Malignant (primary) neoplasm, unspecified; H40.9 Unspecified glaucoma; R16.0 Hepatomegaly, not elsewhere classified; Z87.891 Personal history of nicotine dependence; R62.7 Adult failure to thrive; E86.1 Hypovolemia; D50.9 Iron deficiency anemia, unspecified; R13.10 Dysphagia, unspecified; D63.0 Anemia in neoplastic disease; K86.81 Exocrine pancreatic insufficiency
CPT/HCPCS: 36415; 70450-TC; 71045-TC-FY; 74177-TC; 74230-TC-FY; 78306-TC; 80053; 81003; 82009; 82272; 82378; 82550; 82728; 83540; 83550; 83690; 83735; 83930; 83935; 84100; 84300; 84439; 84443; 84484; 85025; 85027; 85610; 85730; 86301; 86850; 86900; 86901; 87086; 88305-TC; 92611-GN; 93005; 93010; 99284-25; A9503; J7030